=== PATIENT | male | born 1950 | race Caucasian/White ===

== ENCOUNTER → 2017-03-02 | Outpatient (CLI) | payer OTHER ==
[~2017-03-02] MED LIST: ATEN-173 PO; ATOR-24 PO; CMD10 PO; COEN50CA12 PO; CYAN100T PO; HYDR25TA4 PO; OMEG10007 PO; OPTIRAY 320 IV PRN; PYRI100T4 PO; TADA5TAB11 PO; THYROXINE PO; WARF7.5T4 PO
--- NOTE | 2017-03-02 12:25 | DIAGNOSTIC IMAGING REPORT ---
CHEST CT WITH CONTRAST CT DOSE: 335.56 mGy.cm HISTORY: Pulmonary nodules X TECHNIQUE: Multiaxial CT images of the chest were performed following the intravenous administration of contrast. COMPARISON: 02/01/2016 FINDINGS: No change in the minimal parenchymal nodularity described previously. All nodules previously described are stable. There is no evidence for new interval or progressive component of nodularity. There is no significant hilar or mediastinal adenopathy. IMPRESSION: Stable CT of the chest. Unchanging pulmonary micronodularity. Electronically signed by: Sanchez Resendez M.D. 03/02/2017 12:24 PM Dictated Date/Time: 03/02/2017 12:07 PM
== END | disposition home or self-care (01) ==
LOC: C.CTS 11:12
PROVIDERS: ATTEND Family Medicine
DX: R91.8 Other nonspecific abnormal finding of lung field (principal)

== ENCOUNTER 2024-07-14 08:27 | Inpatient (IN) ==
--- OUTSIDE RECORDS SUMMARY | 2024-07-14 08:33 | External Medical Summary | Summary of Care ---
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 W hen over exerting with rest for 5 minutes and able to continue. Denies chest pain, palpitations, SOB, dizziness and edema. Encounter Details Date Type Department Care Team (Latest Contact Info) Description 06/27/2024 11:00 AM EDT Office Visit Cardiology [address] [place] [id number] Sanchez Marr PA-C [address] [place] [id number] Permanent atrial fibrillation (HCC)*; HTN, goal below 140/90; Dyslipidemia, goal LDL below 70; Aortic atherosclerosis (HCC); History of tobacco abuse; Nonrheumatic aortic valve stenosis Allergies Active Allergy Reactions Criticality Noted Date Comments Amiodarone 05/23/2022 Other reaction(s): bradycardia, fatigue Citalopram 05/23/2022 Other reaction(s): Decreased libido Penicillin V Potassium Hives Low 03/27/2009 Prescribed after dental work documented as of this encounter (statuses as of 06/29/2024) Medications Medication Sig Dispensed Refills Start Date End Date Status CO Q 10 10 MG PO CAPS once daily 0 09/28/2007 Act sofi HYDROCHLOROTHIAZIDE 25 MG PO TABSIndications:Dysli pidemia, goal to be determined,Atrial fibrillation (HCC) take one tablet daily 90 Tab 11 04/01/2010 Active VITAMIN B-12 500 MCG PO TABS 1 daily Active VITAMIN B-6 100 MG PO TABS 1 daily Active ATENOLOL 25 MG PO TABSIndications:Dysli pidemia, goal to be determined,Atrial fibrillation (HCC) 1 by mouth daily 90 Tab 3 03/24/2011 Active LIPITOR 40 MG PO TABSIndications:Dysli pidemia, goal to be determined take one tablet daily 90 Tab 3 03/24/2011 Active SYNTHROID 75 MCG OR TABS one tablet daily Active tamsulosin (FLOMAX) 0.4 MG Capsule 05/27/2019 Active clotrimazole (LOTRIMIN) 1 % creamIndications:Eryt adan intertrigo Apply 2x daily under Desitin 40% cream (purple tube) until resolved, then if flares again 60 g 06/12/2019 Active Gentamicin Sulfate 0.1 % OINT Apply 2-3x daily to rash in groin first and then other cream on top until healed 30 g 1 06/17/2019 Active Gabapentin 300 MG Oral Capsule (Neurontin) Take 1 Capsule by mouth in the morning. 03/25/2022 Active Clobetasol Propionate 0.05 % External Ointment (Temovate) 02/16/2022 Activ e busPIRone HCl 30 MG Oral Tablet Start: 10/11/21 13:43:00 EST, See Instructions, Disp# 90 tab, Refills: 3, TAKE 1/2 TABLET BY MOUTH Twice DAILY, Pharmacy: [facility] 10/11/2021 Active Budesonide-Formoterol Fumarate 160-4.5 MCG/ACT Inhalation Aerosol 2 Puffs. 02/10/2022 Active Sildenafil Citrate 50 MG Oral Tablet Take 1 Tablet by mouth daily as needed for Erectile Dysfunction. Active Melatonin 10 MG Oral Tablet Take 0.5 Tablets by mouth at bedtime. Active NATURAL SUPPLEMENT Take by mouth daily. CBD 15 mg twice a day Active Eliquis 5 MG Oral Tablet Take 1 Tablet by mouth in the morning and 1 Tablet before bedtime. 01/02/2023 09/20/2024 Active Fexofenadine HCl 180 MG Oral Tablet (Jacque Allergy) Take 1 Tablet by mouth in the morning. Active Magnesium 200 MG Oral Tablet Take 1 Tablet by mouth in the morning. 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 1 11/08/2005 Overview: ICD-10 update of inactive term Anticoagulation management encounter 09/08/2006 Atrial fibrillation 08/11/2006 Benign localized hyperplasia of prostate with urinary obstruction and other lower urinary tract symptoms (LUTS)(600.21) Dyslipidemia, goal to be determined documented as of this encounter (statuses as of 06/29/2024) Social History Tobacco Use Types Packs/Day Years Used Date Smoking Tobacco: Former Smokeless Tobacco: Former Snuff Quit: 02/05/1990 Comments:quit smoking 07/27 Alcohol Use Standard Drinks/Week Comments Yes 0 (1 standard drink = 0.6 oz pur e alcohol) a beer now and then Sex and Gender Information Value Date Recorded Sex Assigned at Not on file Gender Identity Not on file Sexual Orientation Not on file Job Start Date Occupation Industry Not on file Not on file Not on file documented as of this encounter Last Filed Vital Signs Vital Sign Reading Time Taken Comments Blood Pressure 118/74 06/27/2024 11:06 AM EDT Pulse 72 06/27/2024 11:06 AM EDT Temperature - - Respiratory Rate 16 06/27/2024 11:0 6 AM EDT Oxygen Saturation - - Inhaled Oxygen Concentration - - Weight 76.2 kg (167 lb 14.4 oz) 024 11:06 AM EDT Height - - Body Mass Index - - documented in this encounter Progress Notes * Sanchez Marr PA-C - 06/27/2024 11:18 AM EDT History of Present Illness: Scout Contreras is a very pleasant 74 year old male here today for routine cardiology follow-up. Patient returns today feeling relatively well from a cardiac standpoint. Notes improvement in restless legs as well as neuropathy with addition of [id number] magnesium 200 mg/day. No activity related chest pain, dyspnea, or change in exercise tolerance. Stable shortness of breath when bending over to tie his shoes. No tachypalpitations. No orthopnea, PND or peripheral edema. No syncope. No epistaxis, hemoptysis, melena, or hematuria, rarely with bright red blood, ?hemorrhoidal bleeding. Problem List: Chronic atrial fibrillation. Chronic anticoagulation Hypertension Dyslipidemia Prediabetes Hyperhomocystinemia Hypothyroidism BPH with luts, followed by Dr. Brett Arias Reactive airway disease History of tobacco use Erectile dysfunction Lower extremity paresthesias, polyneuropathy, improved with gabapentin Allergic rhinitis Anxiety Depression Vasectomy Family History: Family history of ischemic heart disease with his mother having undergone CABG in her 60s Social History: Former smoker. Formal snuff user, quitting in 1989. Social alcohol. No illegal druguse. . Two children. Retired, [employer], 38 years of service. 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 Lives in [place], [place] Complete Review of Systems is as stated above, negative, or noncontributory. Review of patient's allergies indicates: Allergen Reactions Amiodarone Other reaction(s): bradycardia, fatigue Citalopram Other reaction(s): Decreased libido Pen Vk [Penicillin V Potassium] Hives Prescribed after dental work Current Outpatient Medications Medication Sig Dispense Refill Fexofenadine HCl 180 MG Oral Tablet (Jacque Allergy) Take 1 Tablet by mouth in the morning. Magnesium 200 MG Oral Tablet Take 1 Tablet by mouth in the morning. Eliquis 5 MG Oral Tablet Take 1 Tablet by mouth in the morning and 1 Tablet before bedtime. Melatonin 10 MG Oral Tablet Take 0.5 Tablets by mouth at bedtime. NATURAL SUPPLEMENT Take by mouth daily. CBD 15 mg twice a day Sildenafil Citrate 50 MG Oral Tablet Take 1 Tablet by mouth daily as needed for Erectile Dysfunction. busPIRone HCl 30 MG Oral Tablet Start: 10/11/21 13:43:00 EST, See Instructions, Disp# 90 tab, Refills: 3, TAKE 1/2 TABLET BY MOUTH Twice DAILY, Pharmacy: [facility] Clobetasol Propionate 0.05 % External Ointment (Temovate) Gabapentin 300 MG Oral Capsule (Neurontin) Take 1 Capsule by mouth in the morning. Gentamicin Sulfate 0.1 % OINT Apply 2-3x daily to rash in groin first and then other cream on top until healed 30 g 1 clotrimazole (LOTRIMIN) 1 % cream Apply 2x daily under Desitin 40% cream (purple tube) until resolved, then if flares again 60 g 0 tamsulosin (FLOMAX) 0.4 MG Capsule SYNTHROID 75 MCG OR TABS one tablet daily ATENOLOL 25 MG PO TABS 1 by mouth daily 90 Tab 3 LIPITOR 40 MG PO TABS take one tablet daily 90 Tab 3 HYDROCHLOROTHIAZIDE 25 MG PO TABS take one tablet daily 90 Tab 11 Budesonide-Formoterol Fumarate 160-4.5 MCG/ACT Inhalation Aerosol 2 Puffs. VITAMIN B-12 500 MCG PO TABS 1 daily VITAMIN B-6 100 MG PO TABS 1 daily CO Q 10 10 MG PO CAPS once daily 0 No current facility-administered medications for this visit. PHYSICAL EXAMINATION: BP 118/74 | Pulse 72 | Resp 16 | Wt 76.2 kg (167 lb 14.4 oz) General: alert, no distress, comfortable and cooperative Skin: no rashes or significant lesions Eyes: PER. Conjunctiva pink, sclera clear. HENT: Normocephalic. Atraumatic. Neck: No carotid bruits. No JVD. No HJR. Heart: Irregularly irregular at 74 bpm. Soft systolic murmur at the lower left sternal border. PMI is nondisplaced. Lungs: Clear. No abnormal breath sounds appreciated. Abdomen: +BS. Soft. Nontender. No masses. No organomegaly. Extremities: No clubbing, cyanosis, or edema. Warm, well perfused. Pulses: radial=2/4, posterior tibial=2/4 Limited neurological examination: No focal deficit. Data: April 29, 2019 Abdominal Arterial Study: Moderate atherosclerotic calcification and irregularity noted throughout the abdominal aorta with no sonographic evidence of abdominal aortic aneurysm. December 31, 2013 FELIX Interpretation Summary ([facility], Dr. Servin): The stress echocardiogram is negative for inducible ischemia. No comparison study available. Normal left ventricular systolic function.Ejection fraction 55 to 60%. The left ventricular ejection fraction increases normally with stress.Left ventricular end systolic cavity size reduces post-stress (normal were spots). The left ventricular wall motion with stress is normal. Left atrium was moderately dilated. The right atrium is mildly dilated. Mild aortic valve sclerosis, without significant aortic valve stenosis. Mild mitral regurgitation. November 03, 2022 TTE Interpretation Summary (as per Dr. Veronica): There was atrial fibrillation during the examination. The left ventricular wall motion is normal. The qualitative LV ejection fraction is 55-59% (normal). The left atrium is moderately enlarged (42-48 ml/m^2). The right atrium is mildly enlarged. The aortic valve is mildly calcified. Borderline to mild aortic stenosis is present. Mild tricuspid regurgitation is present. There is no evidence of pulmonary hypertension. October 2022 Zio Monitor: Atrial Fibrillation occurred continuously (100% burden), ranging from 47-183 bpm (avg of 78 bpm). Isolated VEs were rare (<1.0%), VE Couplets were rare (<1.0%), and noVE Triplets were present. EKG dated 11/21/2023: Atrial fibrillation with a ventricular rate of 66 bpm ASSESSMENT AND RECOMMENDATIONS/PLAN: Chronic atrial fibrillation. Patient asymptomatic. Three day Zio monitor in October 2022 revealed adequate rate control with an average heart rate of 78 bpm. Continue rate control with atenolol as presently prescribed. [id number] Score 3 points (age 65-74, hypertension history, aortic plaque). Continue Eliquis at 5mg twice a day. Eliquis dosing is notably reduced for nonvalvular atrial fibrillation if/when the patient has any two of the following: Age greater than or equal to 80, body weight less than or equalto 60 kg, serum creatinine greater than or equal to 1.5 mg/dL Mild aortic valve stenosis. Repeat resting echocardiography just prior to next evaluation. Hypertension. Blood pressure is well controlled. Continue the current antihypertensive regimen. Dyslipidemia. Recommend targeting an optimal LDL cholesterol goal of less than 70 mg/dL given the aortic plaque and prediabetes. Lipids followed by PCP. Prescribed atorvastatin 40 mg/day Exercise FLORENTINO in October 2023, waveform analysis and treadmill data with no evidence of significant peripheral arterial disease. Routine cardiology follow-up. ER with emergencies. Sanchez Marr PA-C Department of Cardiology I spent a total of 20-29 minutes (exact time 28 mins) on the date of service in preparation, delivery, and documentation of the care provided to Scout Contreras excluding any time spent in the performance of separately billed services. This visit involved medical care services related to at least one serious condition or complex condition requiring ongoing care. This chart was completed in part utilizing [employer] Speech Voice Recognition Software. Grammatical errors, random word insertions, prounoun errors, and incomplete sentences are an occasional consequence of this system due to software limitations, ambient noise, and hardware issues. Any formal questions or concerns about the content, text, or information contained within the body of this dictation should be directly addressed to the provider for clarification. documented in this encounter Nursing Notes * Morales Avalos LPN - 06/27/2024 11:05 AM EDT Patient identified by full name and date of Chief Complaint Patient presents with Follow Up 7 month follow up. When over exerting with rest for 5 minutes and able to continue. Denies chest pain, palpitations, SOB, dizziness and edema. Examination Room: 3 Name: Scout Contreras Date of : (1950). Reason for Visit: 7 month follow up Interim Hospitalization(s): Denies Problems/Concerns: See chief complaint Chest Pain/SOB: Denies [facility] Discussed: Not applicable [facility] is a way you can talk to your provider online through e-mail. Would you like to sign up? I can activate it for you? DECLINES Patient was instructed to not get up on the exam table until directed and assisted by their provider; patient is to remain seated in the chair/ wheelchair/ exam table for fall prevention and safety reasons. Patient is aware to have assistance to step down off exam table with personnel. Patient voiced full comprehension of instructions. documented in this encounter Plan of Treatment Upcoming Encounters Date Type Department Care Team (Late st Contact Info) Description 01/02/2025 10:30 AM EDT Cardiac Studies Cardiac Studies [address] [place] [id number] 02/11/2025 11:30 AM EDT Office Visit Cardiology [address] [place] [phone] Sanchez Marr PA-C [address] [place] [phone] 04/02/2025 11:00 AM EDT Office Visit Dermatology [address] [place] [address] Debbi Martin PA-C [address] [place] [address] [place] [id number] Scheduled Orders Name Type Priority Associated Diagnoses Orde r Schedule ECHO, COMPLETE (2D), TRANS-THORACIC Echocardiology Routine Nonrheumatic aortic valve stenosis Expected: 12/25/2024, Expires: 07/27/2026 Health Maintenance Due Date Last Done Comments GFR 1950 Depression Screening 1964 Albumin/Creatinine Ratio 01/25/1970 Hepatitis C Screening 01/25/1970 DTap/Tdap Vaccines (1 - Tdap) 01/25/1971 Cologuard 01/25/1997 Colonoscopy 01/25/1997 Colorectal Cancer Screening 01/25/1997 Fecal Occult Blood Test 01/25/1997 Sigmoidoscopy 01/25/1997 TSH 12/27/2008 12/28/2007, 08/07/2006 AAA Screening 01/25/2017 COVID-19 Vaccine (4 - 2023-2 4 season) 2024 07/11/2022, 12/31/2020, 11/22/2020 Influenza Vaccine (FLU shot) (#1) 2024 11/12/2019, 11/05/2018, 10/04/2017 Pneumococcal Vaccine: 65+ Years Completed 04/22/2019, 10/04/2017 Zoster Vaccines Completed 08/01/2019, 05/30/2019, 02/29/2012 HPV (Gardasil) Vaccine Aged Out No lo nger eligible based on patient's age to complete this topic Hepatitis B Vaccine Aged Out No longe r eligible based on patient's age to complete this topic MENINGOCOCCAL (MENACTRA/MENVEO) Aged Out No longer eligible b ased on patient's age to complete this topic documented as of this encounter Medical Devices Not on filedocumented as of this encounter Visit Diagnoses Diagnosis Permanent atrial fibrillation (HCC)- Primary Atrial fibrillation HTN, goal below 140/90 Unspecified essential hypertension Dyslipidemia, goal LDL below 70 Other and unspecified hyperlipidemia Aortic atherosclerosis (HCC) Atherosclerosis of aorta History of tobacco abuse Personal history of tobacco use, presenting hazards to health Nonrheumatic aortic valve stenosis Aortic valve disorders documented in this encounter Care Teams Steam Drier Tender Relationship Specialty Start Date End Date Nabil Yoon MD [address] [place] [address] PCP - General 08/07/06 documented as of this encounter"
--- OUTSIDE RECORDS SUMMARY | 2024-07-14 08:33 | External Medical Summary | Continuity of Care Document ---
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 Name Role Phone Nabil Yoon Primary Care Physician [phone] Encounter [facility] [id number] Date(s): 05/09/24 - 05/09/24 [facility] [address] [facility] [address] [place] [address] [phone] Encounter Diagnosis Hyperlipidemia(Discharge Diagnosis) - 05/09/24 Hypothyroidism(Discharge Diagnosis) - 05/09/24 Prediabetes(Discharge Diagnosis) - 05/09/24 Body mass index [BMI] 28.0-28.9, adult(Discharge Diagnosis) - 05/09/24 Polyneuropathy(Discharge Diagnosis) - 05/09/24 Elevated PSA(Discharge Diagnosis) - 05/09/24 ED (erectile dysfunction)(Discharge Diagnosis) - 05/09/24 Discharge Disposition: Home or Self Care Attending Physician: MD Yoon Michael P Allergies, Adverse Reactions, Alerts Substance Criticality Severity Reaction Reaction Severity Status amiodarone fatigue bradycardia Active citalopram Decreased libido Ac tive PCN (penicillin) hives Act sofi Assessment and Plan Extracted from: Title:Office Visit Note Author:MD Karrie, Alfredo Browne Date:05/09/24 1.Hyperlipidemia STATUS: [X= specifies status]Previous visit:On Atorvastin 40 mg -Chronic stable: X -Chronic progressive: -Acute NEW DX: DATA:Labs/Tests reviewed. A1C,TSH andBMPordered forthisvisitand notdone GOAL:Maintain/improve stability. PLAN:Continue current monitoring. . 2.Hypothyroidism STATUS: [X= specifies status]Previous visit:REDUCE THE LEVOTHYROXINE 75 mcg FURTHER BY SKIPPING WED and SUN both . Check TSH in 8 weeks--goal > 2.0 -Chronic stable: X -Chronic progressive: -Acute NEW DX: DATA:Labs/Tests reviewed.A1C,TSH andBMPordered frthisvisitand notdone GOAL:Maintain/improve stability. PLAN:Continue current monitoring. . 3.Prediabetes STATUS: [X= specifies status]Previous visit:A1C 5.4 -Chronic stable: X -Chronic progressive: -Acute NEW DX: DATA:Labs/Tests reviewed.A1C,TSH andBMPordered [facility]this[facility]anddoneat [facility] GOAL:Maintain/improve stability. PLAN:Continue current monitoring. . 4.Polyneuropathy STATUS: [X= specifies status]Previous visit: He has had a marked improvement with magnesium 200 mg daily -Chronic stable: X -Chronic progressive: -Acute NEW DX: DATA:Labs/Tests reviewed. GOAL:Maintain/improve stability. PLAN:Continue current monitoring. He wants to taper down on the Neurontin and will cut from 300 mg BID to HS only and cont the Mg 200 mg daily . 5.Elevated PSA STATUS: [X= specifies status]Previous visit: BN 2022 PSA = 13; Per pt most recently in JAN 2024 PSA = 7. BX was NEG in NOV 2022. -Chronic stable: X -Chronic progressive: -Acute NEW DX: DATA:Labs/Tests reviewed. GOAL:Maintain/improve stability. PLAN:Continue current monitoring. PSA Q 6 mos as per Urology rec ([facility]) . 6.ED (erectile dysfunction) STATUS: [X= specifies status]Previous visit: He has had to use Viagra 150 mg for a full erection. Disucssed this is too much and may not be safe, -Chronic stable: X -Chronic progressive: -Acute NEW DX: DATA:Labs/Tests reviewed. GOAL:Maintain/improve stability. PLAN:Continue current monitoring. Trial of Cialis 10mg daily prn Disp 40 REF 3 . Summary: Medications: reviewed/changed/refilled _Completed Results:_Reviewed Labs:_6 mos: FLP,BMP, TSH,A1C, PSA Follow up visit: Return to clinic: _6 months Other activities completed this visit: Education provided (discussion, questions, etc) _ Discussed: _ Need for labs to monitor health ; Efficacy and Side effects of CIalis Coordinate care: Primary care and _ Time spent: Pre-visit planning: _ 8 [id number] visit: _ 23 Total visit time: _ 31 *does not include time for AWV or procedure if applicable Immunizations Given and Recorded Vaccine Date Status Refusal Reason RSV Vaccine Unspecified 10/13/23 Recorded influenza virus vaccine, inactivated 10/20/22 Give n influenza virus vaccine, inactivated 10/11/21 Give n influenza virus vaccine, inactivated 08/24/20 Give n influenza virus vaccine, inactivated 11/12/19 Give n influenza virus vaccine, inactivated 11/05/18 Give n influenza virus vaccine, inactivated 10/04/17 Give n tetanus/diphtheria/pertuss, acel (Tdap) 10/12/21 R ecorded SARS-CoV-2 (COVID-19) mRNA-1273 vaccine 1 08/23/21 Recorded SARS-CoV-2 (COVID-19) ChAdOx1 vaccine 12/31/20 Rec orded SARS-CoV-2 (COVID-19) ChAdOx1 vaccine 11/22/20 Rec orded zoster vaccine, inactivated 08/01/19 Given zoster vaccine, inactivated 05/30/19 Given pneumococcal 23-valent vaccine 04/22/19 Given tetanus toxoids-diphtheria, Td (Adult) 10/04/17 [facility] pneumococcal 13-valent vaccine 10/04/17 Given zoster vaccine live 02/29/12 Given 1Result Comment: 2021-10-14: Historical information-source unspecified Medications Jacque Start: 05/09/24 11:24:00 AM EDT Start Date: 05/09/24 Status: Ordered atenolol 25 mg oral tablet Start: 10/26/23 11:53:00 AM EST, See Instructions, Disp# 90 tab, Refills: 3, TAKE 1 TABLET BY MOUTH DAILY, Pharmacy: [facility]/pharmacy #[id number] Start Date: 10/26/23 Status: Ordered atorvastatin 40 mg oral tablet Start: 10/26/23 11:54:00 AM EST, See Instructions, Disp# 90 tab, Refills: 3, TAKE 1 TABLET BY MOUTH DAILY, Pharmacy: [facility]/pharmacy #[id number] Start Date: 10/26/23 Status: Ordered busPIRone 30 mg oral tablet Start: 10/26/23 11:54:00 AM EST, See Instructions, Disp# 90 tab, Refills: 3, TAKE 1/2 TABLET BY MOUTHTwice DAILY, Pharmacy: [facility]/pharmacy #[id number] Start Date: 10/26/23 Status: Ordered cannabidiol Start: 10/20/22 10:54:00 AM EST, 30 mg =, PO, Daily, Uses OTC CBD form [employer] Start Date: 10/20/22 Status: Ordered Cialis 20 mg oral tablet Start: 05/09/24 12:06:00 PM EDT, 1 tab, PO, Daily, Disp# 40 tab, Refills: 3, Note to Pharmacy: He isoff Sildenafil, PRN: as needed for erectile dysfunction Start Date: 05/09/24 Status: Ordered Eliquis 5 mg oral tablet Start: 10/26/23 11:55:00 AM EST, 1 tab, PO, bid, Disp# 60 tab, Refills: 10, Note to Pharmacy: stop Warfarin, Pharmacy: [facility]/pharmacy #[id number] Start Date: 10/26/23 Stop Date: 09/20/24 Status: Ordered gabapentin 300 mg oral capsule Start: 10/26/23 11:54:00 AM EST, See Instructions, Disp# 270 cap, Refills: 3, TAKE 1 CAPSULE BY MOUTH3 TIMES DAILY, Pharmacy: [facility]/pharmacy #[id number] Start Date: 10/26/23 Status: Ordered hydroCHLOROthiazide 25 mg oral tablet Start: 10/26/23 11:54:00 AM EST, See Instructions, Disp# 90 tab, Refills: 3, TAKE 1 TABLET BY MOUTH DAILY, Pharmacy: [facility]/pharmacy #[id number] Start Date: 10/26/23 Status: Ordered ipratropium 42 mcg/inh (0.06%) nasal spray Start: 12/20/23 6:03:00 PM EST, 2 spray, intranasal, qid, Disp# 15 unknown unit, Refills: 0, PRN: ASNEEDED FOR COLD SYMPTOMS, Pharmacy: [facility] STORE [id number] Start Date: 12/20/23 Status: Ordered levothyroxine 75 mcg (0.075 mg) oral tablet Start: 10/26/23 11:54:00 AM EST, See Instructions, Disp# 90 tab, Refills: 3, 1 tab PO Daily M-SAT. SKIP SUN on an empty stomach, Pharmacy: [facility]/pharmacy #[id number] Start Date: 10/26/23 Status: Ordered magnesium oxide 400 mg oral capsule Start: 05/09/24 11:23:00 AM EDT Start Date: 05/09/24 Status: Ordered Melatonin Start: 05/09/24 11:22:00 AM EDT, 10 mg =, PRN Start Date: 05/09/24 Status: Ordered multivitamin Start: 05/09/24 11:23:00 AM EDT, 1 tab, PO, Daily Start Date: 05/09/24 Status: Ordered ProAir HFA 90 mcg/inh inhalation aerosol Start: 05/09/24 5:19:00 PM EDT, 2 puff, inhaled, qid, Disp# 1 each, Refills: 3, PRN: as needed for wheezing, Pharmacy: [facility]/pharmacy #[id number] Start Date: 05/09/24 Stop Date: 05/04/25 Status: Ordered sildenafil 100 mg oral tablet Start: 10/26/23 12:23:00 PM EST, 1 tab, PO, Daily, Disp# 18 tab, Refills: 3, PRN: as needed for erectile dysfunction Start Date: 10/26/23 Stop Date: 02/23/24 Status: Ordered Symbicort 160 mcg-4.5 mcg/inh inhalation aerosol Start: 05/09/24 5:19:00 PM EDT, 2 puff, inhaled, bid, Disp# 1 each, Refills: 3, Pharmacy: [facility]/pharmacy #[id number] Start Date: 05/09/24 Status: Ordered tamsulosin 0.4 mg oral capsule Start: 10/26/23 11:54:00 AM EST, 1 cap, PO, Daily, Disp# 90 cap, Refills: 3, Pharmacy: [facility]/pharmacy #[id number] Start Date: 10/26/23 Stop Date: 10/20/24 Status: Ordered triamcinolone 0.1% topical cream Start: 05/09/24 5:19:00 PM EDT, 1 appl, topical, bid, Disp# 30 g, Refills: 3, apply to foot, Pharmacy: [facility]/pharmacy #[id number] Start Date: 05/09/24 Status: Ordered Mental Status 05/09/24 Barriers to Learning one year None evide nt Mandatory Health Literacy Documentation Yes Health Literacy Communication Barriers N ever Primary Language Chinese Problem List Condition Confirmation Course Effective Dates Status Health Status Informant ALLERGIC RHINITIS Confirmed Active ANXIETY Confirmed Active ATRIAL FIBRILLATION Confirmed Active BPH with elevated PSA Confirmed Active Edema leg Confirmed Active ED (erectile dysfunction) Confirmed Active Hyperhomocysteinemia Confirmed Active Hyperlipidemia Confirmed Active Hypothyroidism Confirmed Active Obese Confirmed Active Left leg paresthesias Confirmed Active Right leg paresthesias Confirmed Active Health care maintenance Confirmed Active Polyneuropathy Confirmed Active Prediabetes Confirmed Active Reactive airway disease Confirmed Active History of prior cigarette smoking Confirmed Active Diagnosis Diagnosis Type Effective Dates Health Status Clinical Service Informant Prediabetes Discharge Diagnosis 05/09/24 Non-Specified Hypothyroidism Discharge Diagnosis 05/09/24 Non-Specified Hyperlipidemia Discharge Diagnosis 05/09/24 Non-Specified Elevated PSA Discharge Diagnosis 05/09/24 Non-Specified Body mass index [BMI] 28.0-28.9, adult Discharge Diagnosis 05/09/24 Non-Specified ED (erectile dysfunction) Discharge Diagnosis 05/09/24 Non-Specified Polyneuropathy Discharge Diagnosis 05/09/24 Non-Specified Procedures Procedure Date Related Diagnosis Body Site Status Eye examination 12/02/22 Completed Chest x-ray 1 10/29/19 Completed Ultrasound scan of abdominal aorta 2 04/29/[address] 3 03/02/17 Completed Hand X-ray 4 02/16/16 Completed Hand X-ray 5 02/16/[address] of chest 6 02/01/16 Completed Chest x-ray 7 12/27/[address] head w/o contrast 8 12/27/15 Co mpleted Colonoscopy 9 02/09/[address] 10 02/02/15 Completed Cardiac stress test stage 12/21/13 Completed EKG 12/21/12 Completed prostate biopsy - neg for CA 02/20/09 Completed EMG 01/09/09 Completed EKG 12/13/07 Completed prostate biopsy - neg for CA 09/22/06 Completed echo 07/28/06 Completed colonoscopy 10/23/04 Completed vasectomy 10/23/99 Completed T & A 10/23/56 Completed Nerve conduction study 11 Completed 1No acute cardiopulmonary disease. 2impression There is no sonographic evidence of abdominal aneurysm 3Stable CT of the chest. Unchanging pulmonary micronodularity 4left-arthritic changes with no acute bony abnormality 5right - right hand osteoarthritis. Neg for fx 6No significant changae compared to previous study. A few stable subcentimeter pulmonary nodule which are likely benign. No new pulmonary nodules identified 7no acute process 8ER-no acute intracranial abnormality 9ileum normal, internal hemorrhoids, enlarged prostate - repeat 10 years 104 mm RLL nodule--follow with repeat CT in 1 year per radiology. 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 1, 2 Smoking Status Former Smoker, quit > 1 yr Sex Male 1Duration x 30 yrs 2HX Smoking 1 ppd x FCM Outpt Note * MD Karrie, Nabil P: PERFORM Event Display: FCM Outpt Note Authored Date: Chief Complaint 6 month f/u. Started magnesium which seems to help with restless legs. History of Present Illness Most recent visitwith Dr. Yoon: 11/12/23 * This patient is followed longitudinally for chronic serious medical problems by Dr. Felicita Yoon. CC: FU on established problems (status = chronic):MDD, BPH, AFIB, Hyperlipidemia, PreDM Address new problems (status = acute): Had RLS and he tried Magnesium and this has helped. He is taking 200 mg daily Review of Systems Constitutional: No fever, No chills, No fatigue. Respiratory: No shortness of breath, No cough, No wheezing. Cardiovascular: No chest pain, No palpitations. Gastrointestinal: No nausea, No vomiting, No diarrhea, No abdominal pain. Neurologic:No numbness, No tingling, No headache. Physical Exam Vitals & Measurements HR:57(Monitored) RR:18 BP:122/86 SpO2:99% HT:162cm WT:75.800kg(Dosing) WT:75.8kg BMI:28.88 PHQ2 Data(Data Documented on:05/09/2024 11:25) Emotional health assessment NEGATIVE General: Alert and oriented, No acute distress. HEENT: Eyes WNL, Tympanic membranes are clear, No pharyngeal erythema, No sinus tenderness. Neck: Supple, Non-tender, No jugular venous distention, No lymphadenopathy, No thyromegaly. Respiratory: Lungs are clear to auscultation, Respirations are non-labored, Breath sounds are equal. Cardiovascular: Normal rate, Regular rhythm, No murmur, rubs or gallops. Gastrointestinal: Soft, Non-tender, Non-distended, Normal bowel sounds. Neurologic: Alert, Oriented, No focal deficits. Psychiatric: Cooperative, Appropriate mood & affect. Assessment/Plan 1.Hyperlipidemia STATUS: [X= specifies status]Previous visit:On Atorvastin 40 mg -Chronic stable: X -Chronic progressive: -Acute NEW DX: DATA:Labs/Tests reviewed.A1C,TSH andBMPordered forthisvisitand notdone GOAL:Maintain/improve stability. PLAN:Continue current monitoring. . 2.Hypothyroidism STATUS: [X= specifies status]Previous visit:REDUCE THE LEVOTHYROXINE 75 mcg FURTHER BY SKIPPING WED and SUN both . Check TSH in 8 weeks--goal > 2.0 -Chronic stable: X -Chronic progressive: -Acute NEW DX: DATA:Labs/Tests reviewed.A1C,TSH andBMPordered frthisvisitand notdone GOAL:Maintain/improve stability. PLAN:Continue current monitoring. . 3.Prediabetes STATUS: [X= specifies status]Previous visit:A1C 5.4 -Chronic stable: X -Chronic progressive: -Acute NEW DX: DATA:Labs/Tests reviewed.A1C,TSH andBMPordered frthisvisitanddoneat [facility] pending GOAL:Maintain/improve stability. PLAN:Continue current monitoring. . 4.Polyneuropathy STATUS: [X= specifies status]Previous visit: He has had a marked improvement with magnesium 200mg daily -Chronic stable: X -Chronic progressive: -Acute NEW DX: DATA:Labs/Tests reviewed. GOAL:Maintain/improve stability. PLAN:Continue current monitoring. He wants to taper down on the Neurontin and will cut from 300 mg BID to HS only and cont the Mg 200 mg daily . 5.Elevated PSA STATUS: [X= specifies status]Previous visit: [facility] 2022 PSA = 13; Per pt most recently in JAN 2024 PSA = 7. BX was NEG in NOV 2022. -Chronic stable: X -Chronic progressive: -Acute NEW DX: DATA:Labs/Tests reviewed. GOAL:Maintain/improve stability. PLAN:Continue current monitoring. PSA Q 6 mos as per Urology rec ([facility]) . 6.ED (erectile dysfunction) STATUS: [X= specifies status]Previous visit: He has had to use Viagra 150 mg for a full erection. Disucssed this is too much and may not be safe, -Chronic stable: X -Chronic progressive: -Acute NEW DX: DATA:Labs/Tests reviewed. GOAL:Maintain/improve stability. PLAN:Continue current monitoring. Trial of Cialis 10mg daily prn Disp 40 REF 3 . Summary: Medications: reviewed/changed/refilled _Completed Results:_Reviewed Labs:_6 mos: FLP,BMP, TSH,A1C, PSA Follow up visit: Return to clinic: _6 months Other activities completed this visit: Education provided (discussion, questions, etc) _ Discussed: _ Need for labs to monitor health ; Efficacy and Side effects of CIalis Coordinate care: Primary care and _ Time spent: Pre-visit planning: _ 8 [id number]-fp-[id number] visit: _ 23 Total visit time: _ 31 *does not include time for AWV or procedure if applicable Problem List/Past Medical History Ongoing ALLERGIC RHINITIS ANXIETY ATRIAL FIBRILLATION BPH with elevated PSA ED (erectile dysfunction) Edema leg Health care maintenance History of prior cigarette smoking Hyperhomocysteinemia Hyperlipidemia Hypothyroidism Left leg paresthesias Obese Polyneuropathy Prediabetes Reactive airway disease Right leg paresthesias Resolved Immunization due Leg pain Peripheral arterial disease Procedure/Surgical History Eye examination| Service Date: 3Chest x-ray| Service Date: 10/29/2019Ultrasound scan of abdominal aorta| Service Date: 04/29/2019Chest CT| Service Date: 03/02/2017Hand X-ray| Service Date: 02/16/2016Hand X-ray| Service Date: 02/16/2016CT of chest| Service Date: 02/01/2016Chest x-ray| Service Date: 12/27/2015CT head w/o contrast| Service Date: 12/27/2015Colonoscopy| Service Date: 02/09/2015Chest CT| Service Date: 02/02/2015Cardiac stress test stage| Service Date: 12/21/2013EKG| Service Date: 12/21/2012prostate biopsy - neg for CA| Service Date: 02/20/2009EMG| Service Date: 01/09/2009EKG| Service Date: 12/13/2007prostate biopsy - negfor CA| Service Date: 09/22/2006echo| Service Date: 07/28/2006colonoscopy| Service Date: 10/23/2004 vasectomy| Service Date: 10/23/1999 T & A| Service Date: 10/23/1956 Nerve conduction study Medications albuterol(ProAir HFA 90 mcg/inh inhalation aerosol), 2 puff, inhaled, qid, PRN, 3 refills apixaban(Eliquis 5 mg oral tablet), 5 mg= 1 tab, PO, bid, 10 refills atenolol(atenolol 25 mg oral tablet), See Instructions, 3 refills atorvastatin(atorvastatin 40 mg oral tablet), See Instructions, 3 refills budesonide-formoterol(Symbicort 160 mcg-4.5 mcg/inh inhalation aerosol), 2 puff, inhaled, bid, 3 refills busPIRone(busPIRone 30 mg oral tablet), See Instructions, 3 refills cannabidiol, 30 mg, PO, Daily fexofenadine(Jacque) gabapentin(gabapentin 300 mg oral capsule), See Instructions, 3 refills hydroCHLOROthiazide(hydroCHLOROthiazide 25 mg oral tablet), See Instructions, 3 refills ipratropium nasal(ipratropium 42 mcg/inh (0.06%) nasal spray), 2 spray, intranasal, qid, PRN levothyroxine(levothyroxine 75 mcg (0.075 mg) oral tablet), See Instructions, 3 refills magnesium oxide(magnesium oxide 400 mg oral capsule) melatonin(Melatonin), 10 mg multivitamin, 1 tab, PO, Daily sildenafil(sildenafil 100 mg oral tablet), 100 mg= 1 tab, PO, Daily, PRN, 3 refills tamsulosin(tamsulosin 0.4 mg oral capsule), 0.4 mg= 1 cap, PO, Daily, 3 refills triamcinolone topical(triamcinolone 0.1% topical cream), 1 appl, topical, bid, 3 refills Allergies PCN (penicillin)hives amiodaronefatigue, bradycardia citalopramDecreased libido Social History Smoking Status Former Smoker, quit > 1 yr Alcohol Use:Current Type:Beer Frequency:1-2 times per week - Comments: Less in winter 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 Work hazards:Heavy lifting/twisting, Loud noises, Repetitive motion, Shift/Night work Exercise - Occasional exercise Home/Environment Lives with:Spouse Substance Abuse - Denies Substance Abuse Tobacco - Denies Tobacco Use Use:Former smoker Type:Cigarettes Number of years:30 - Comments: Duration x 30 yrs HX Smoking 1 ppd x Family History Alive and well: Sister, Daughter and Daughter. Cardiovascular disease: Mother. Diabetes: Mother. Heart disease: Mother. High Blood Pressure: Father. Melanoma: Sister. Health Status Family Member(s) Family Member(s) Relationship: Mother, Name: , Age: 86 Years, Cause: PVD Relationship: Father, Name: deceassed, Age: 85 Years, Cause: old age Immunizations Vaccine Date Status RSV Vaccine Unspecified 10/13/2023 Recorded influenza virus vaccine, inactivated 10/20/2022 Given tetanus/diphtheria/pertuss, acel (Tdap) 10/12/2021 Recorded influenza virus vaccine, inactivated 10/11/2021 Given SARS-CoV-2 (COVID-19) mRNA-1273 vaccine 08/23/2021 Recorded Comments : 2021-10-14: Historical information-source unspecified SARS-CoV-2 (COVID-19) ChAdOx1 vaccine 12/31/2020 Recorded SARS-CoV-2 (COVID-19) ChAdOx1 vaccine 11/22/2020 Recorded influenza virus vaccine, inactivated 08/24/2020 Given influenza virus vaccine, inactivated 11/12/2019 Given zoster vaccine, inactivated 08/01/2019 Given zoster vaccine, inactivated 05/30/2019 Given pneumococcal 23-valent vaccine 04/22/2019 Given influenza virus vaccine, inactivated 11/05/2018 Given tetanus toxoids-diphtheria, Td (Adult) 10/04/2017 Given pneumococcal 13-valent vaccine 10/04/2017 Given influenza virus vaccine, inactivated 10/04/2017 Given zoster vaccine live 02/29/2012 Given Recommendations Health Maintenance Pending(in the next year) OverDue Medicare Annual Wellness Visit due04/18/23and every 1year Due Adult Influenza Vaccine due04/21/24and every 1year Adult COVID-19 Vaccination due05/09/24Unknown Frequency Adult Social Determinants of Health Screening due05/09/24Unknown Frequency Due In Future Colorectal Cancer Screening not due until02/06/25and every 10year Satisfied(in the past 1 year) Satisfied Body Mass Index on05/09/24.Satisfied by GRACIELA Peacock Vanessa T Lipid Screening on10/12/23.Satisfied by Contributor_system, [employer] Electronic Signature on File Electronically Reviewed/Signed by: Nabil Yoon MD Author Signature Dt/Tm:05/09/2024 12:04 PM Department of Family Medicine [facility] Patient Care team information Care Team Personnel Name: MD Karrie, Nabil Browne Position: Physician - Family Med Member Role: Primary Care Provider Address: Address: [address] [place] [address] [place] Name: BRITT Camacho Lynn 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
--- NOTE | 2024-07-14 08:49 | Emergency Department Note ---
Impression & Plan Gastroenteritis, Upper GI bleed ED Provider Note Name: MYRA PETTIT Age: 74 Sex: Male Arrives Via: Walk-In Informant: Patient ED Provider: Reynold Frederick MD Chief Complaint: Abdominal pain Impression: as per impressions above Medical Decision Makin-year-old gentleman with a history of A-fib, dyslipidemia, hypertension, BPH, hypothyroidism who is on Eliquis. Rapidly worsening last 24 hours associated nausea vomiting. He does have brown coffee-ground emesis. Distended abdomen uncomfortable. CT does show a pretty distended stomach and small bowel without any evidence of a transition point. Ileus versus partial small bowel obstruction in differential. With vomiting coffee-ground this is consistent with an upper GI bleed. Fortunately hemoglobin is unremarkable. He is on Eliquis thus IV Protonix was given. Patient is not septic and given findings I do not feel that general surgery evaluation emergently is necessary quite at this time. Patient is feeling much better after some nausea meds. Will keep n.p.o. and bring in for further management. Triage/Nursing Notes reviewed by Me Differential:Bowel obstruction, upper GI bleed, aortic pathology, pancreatitis, cholecystitis, ischemia, biliary pathology, perforation, many other pathologies considered Vital Signs: reviewed and remarkable for no significant abnormalities Interventions: nss bolus 1 L IV, Protonix 80 mg IV, Dilaudid 0.5 mg IV, Zofran 4 mg IV Labs:ED labs Reviewed by me and remarkable for no significant abnormalities Imaging:CT abdomen pelvis with IV contrast reveals large distended stomach with diffuse small bowel swelling though no transition point. This is as per my informal interpretation and then confirmed by radiologist. No evidence of free air or free fluid EKG:As per my interpretation. Indication epigastric pain. Atrial fibrillation at 93 bpm with a QTc of 477. There is no ischemia appreciated. Compared to EKG of December 20, 2022 there is no significant change. Cardiac/Tele Monitoring: Cardiac Monitoring: An Order was placed for continuous cardiac monitoring. The monitor shows a rate of 90 with afib rhythm. Consults:Discussed with Dr. Ricketts of the [facility] who will further evaluate for management Plan: Disposition:Hospitalization. Condition: Good History of Present Illness: 74-year-old gentleman arrives for evaluation of acute abdominal pain. Patient notes little under 24 hours of severe abdominal pain. It has actually improved a bit over the morning. Associated with repetitive vomiting since late yesterday evening. Notes coffee-ground brown emesis and increasingly dark stool. Did try taking some Pepto-Bismol without improvement. States pain is currently mild though does come in waves. Denies any fevers, chills, chest pain, shortness of breath, syncope, leg swelling, rashes, other bleeding bruising or other concerning signs or symptoms. No falls, trauma, injuries. Patient denies anyone else being sick. Patient admits 1 beer yesterday. He does eat a lot of hot peppers on a daily basis. Does not take any antacids. Has a history of a stomach ulcer many years ago. Patient is on Eliquis for history of A-fib. Past Medical History: A-fib, dyslipidemia, hypertension, BPH, hypothyroidism Home Medications: Patient is not on warfarin. He is currently on Eliquis for his A-fib. Also is on levothyroxine, hydrochlorothiazide, gabapentin, buspirone, atorvastatin, atenolol, sildenafil, tamsulosin Allergies: Penicillin, pollen Vitals:Blood Pressure: 158/83, Pulse 94, RR 14, T 36.4C, O2 100% on RA Physical Exam: GENERAL: Patient is tired appearing and in minimal distress. RESPIRATORY: No dyspnea. Clear to auscultation and equal bilaterally. CARDIOVASCULAR: Regular rate and rhythm.No murmur appreciated. GASTROINTESTINAL: Mild epigastric tenderness palpation EXTREMITIES: Normal motion all extremities, no cyanosis, no edema. NEUROLOGIC: Alert and oriented. No focal neurologic deficits appreciated SKIN: No rash, no jaundice, no diaphoresis. PSYCH: Appropriate GCS: 15 ED Course: Times/Reassessments: Patient stable throughout comfortable after meds and agreeable to hospitalization Reynold Frederick MD Past Med/Surg History Problem List (Updated 07/14/24 @ 16:08 by Reynold Frederick MD) Constipation Gastroenteritis (Acute) Upper GI bleed (Acute) Partial bowel obstruction BPH with obstruction/lower urinary tract symptoms Cubital tunnel syndrome on right Hypothyroidism (Chronic) Hypertension (Chronic) Bilateral leg weakness (Acute) Nocturia (Acute) Elevated PSA (Acute) Bronchitis No history of previous surgery Carpal tunnel syndrome on both sides Medical History (Updated 07/14/24 @ 16:08 by Reynold Frederick MD) Anxiety Leg weakness HX / EVAL FOR / NO FINDINGS/REASON FOR GABAPENTIN...EFFECTIVE Hypothyroid History of high cholesterol Borderline high blood pressure Cubital tunnel syndrome, bilateral Atrial fibrillation DX 2003 OR 2004 NO HX CARDIOVERSION ON WARFARIN Surgical History History of tonsillectomy History of colonoscopy Family History Grandmother (Maternal) Diabetes Mother Diabetes Other Hypertension Social History Smoking Status: Former smoker Do You Dip or Chew Tobacco: No; Hx Substance Use: No Preferred Language: Chadian Communication Ability: Effective Well Testing Operator Required: No Beliefs That Will Affect Care: None Current Living Situation: Spouse Feels Safe at Home: Yes Assistive Devices: Hearing Aid - Bilateral Allergies Allergies Allergy/AdvReac Type Severity Reaction Status Date / Time penicillin V [From Pen-Vee K] Allergy Unknown Rash Verified 07/14/24 11:30 pollen extracts Allergy Unknown RUNNY Verified 07/14/24 11:30 NOSE, SNEEZING, ITCHY EYES Home Meds Home Medications Medication Instructions Recorded Confirmed atenolol 25 mg tablet 25 mg PO PM 07/16/19 07/14/24 atorvastatin 40 mg tablet 40 mg PO QPM 07/16/19 07/14/24 hydrochlorothiazide 25 mg tablet 25 mg PO QAM 07/16/19 07/14/24 levothyroxine 75 mcg tablet 75 mcg PO DAILYBB 07/16/19 07/14/24 acetaminophen 500 mg tablet 1,000 mg PO Q6H PRN Pain 04/24/21 07/14/24 (Tylenol Extra Strength) gabapentin 300 mg capsule 300 mg PO QPM 04/24/21 07/14/24 Cbd Capsule 1 dose PO DAILY 12/28/22 07/14/24 apixaban 5 mg tablet (Eliquis) 5 mg PO BID 07/14/24 07/14/24 buspirone 30 mg tablet 15 mg PO QAM 07/14/24 07/14/24 magnesium 250 mg tablet 250 mg PO QPM 07/14/24 07/14/24 melatonin 5 mg tablet 5 mg PO HS PRN Sleep 07/14/24 07/14/24 multivitamin 1 tab PO QAM 07/14/24 07/14/24 tamsulosin 0.4 mg capsule 0.4 mg PO QPM 07/14/24 07/14/24 Previous Rx's Medication Instructions Recorded tramadol 50 mg tablet 50 - 100 mg (1 - 2 x 50 mg) PO Q6H 01/04/23 PRN pain #20 tabs Results & Data (ED) Vital Signs Vital Signs - 24 hr 07/14/24 08:27 07/14/24 09:58 Temperature 36.4 C L Temperature Source Oral Pulse Rate 91 H 89 Pulse Rhythm Irregular Pulse Strength Normal Respiratory Rate 20 Blood Pressure 139/93 Blood Pressure Mean 108 Pulse Oximetry 93 Oxygen Delivery Method Room Air Sepsis Recent Fever Within 48 Hours No Sepsis New/Unexplained Change in Mental Status No Sepsis Action Taken by Nursing No Action Required Laboratory Data 07/14/24 09:09 07/14/24 09:56 Lab Results 07/14/24 07/14/24 Range/Units 09:09 09:56 WBC 6.20 (4.8-10.8) K/ul RBC 4.97 (4.70-6.10) M/uL Hgb 15.5 (14.0-18.0) g/dl Hct 44.7 (42.0-52.0) % MCV 89.9 (80.0-100.0) fL MCH 31.2 (25.0-34.0) pg MCHC 34.7 (32.0-36.0) g/dL RDW Std Deviation 41.4 (36.4-46.3) fL RDW Coeff of Hanna 12.7 (11.5-14.5) % Plt Count 200 (130-400) K/uL MPV 10.2 (9.4-12.4) fL Immature Gran % (Auto) 0.2 % Neut % (Auto) 74.7 % Lymph % (Auto) 14.2 % Edmunds % (Auto) 9.8 % Eos % (Auto) 0.5 % Baso % (Auto) 0.6 % Neut # (Auto) 4.63 (1.40-6.50) K/uL Lymph # (Auto) 0.88 L (1.20-3.40) K/uL Edmunds # (Auto) 0.61 H (0.11-0.59) K/uL Eos # (Auto) 0.03 (0.00-0.50) K/uL Baso # (Auto) 0.04 (0.00-0.20) K/uL Immature Gran # (Auto) 0.01 (0.01-0.20) K/uL PT 10.4 (9.0-12.0) Seconds INR 1.0 (0.9-1.1) APTT 26 (21-31) Seconds PTT Ratio 1.0 Sodium 140 (136-145) mmol/L Potassium TNP 3.3 L Chloride 99 (98-107) mmol/L Carbon Dioxide 33 H (21-32) mmol/L Anion Gap 8 (3-11) BUN 15 (6-23) mg/dl Creatinine 0.90 (0.6-1.4) mg/dl Est Cr Clr Drug Dosing 64.5 ml/min Est GFR ( Amer) 98.5 ml/min Est GFR (Non-Af Amer) 85.0 ml/min BUN/Creatinine Ratio 16.7 (10-20) Glucose 136 H (70-99(Fasting)) mg/dl Calcium 9.9 (8.6-10.3) mg/dl Magnesium 1.9 (1.7-2.4) mg/dl Total Bilirubin 0.9 (0.2-1.0) mg/dl Direct Bilirubin TNP 0.2 AST TNP 18 ALT 18 (7-52) U/L Alkaline Phosphatase 66 (34-104) U/L Troponin I High Sens 6.0 (0-20) pg/ml Total Protein 7.0 (6.0-8.3) gm/dl Albumin 4.4 (3.4-5.0) gm/dl Lipase 30 (11-82) U/L Administered Medications Lactated Ringer's (Lr) 1,000 mls @ 125 mls/hr IV .Q8H JAMIA Stop: 08/13/24 14:36 Last Admin: 07/14/24 15:13 Dose: 125 mls/hr Documented By: EUNICE Discontinued Medications Hydromorphone HCl (Hydromorphone Inj 0.5 Mg/0.5 Ml Syr) 0.5 mg IV NOW STA Stop: 07/14/24 11:16 Last Admin: 07/14/24 12:10 Dose: 0.5 mg Documented By: EUNICE Sodium Chloride (Nss) 1,000 mls @ 999 mls/hr IV .Q1H1M ONE Stop: 07/14/24 09:45 Last Infusion: 07/14/24 11:04 Dose: Infused Documented By: Admin: 07/14/24 09:04 Dose: 999 mls/hr Documented By: EUNICE Pantoprazole Sodium 80 mg/ (Dextrose) 120 mls @ 480 mls/hr IV ONE STA Stop: 07/14/24 08:59 Last Infusion: 07/14/24 11:03 Dose: Infused Documented By: Admin: 07/14/24 10:15 Dose: 480 mls/hr Documented By: BUNNY Acetaminophen (Ofirmev) 1,000 mg in 100 mls @ 400 mls/hr IV NOW STA Stop: 07/14/24 12:16 Last Infusion: 07/14/24 13:22 Dose: Infused Documented By: Admin: 07/14/24 13:04 Dose: 400 mls/hr Documented By: EUNICE Ioversol (Optiray 320 100ml) 94 ml IV ONCE ONE Stop: 07/14/24 10:28 Last Admin: 07/14/24 10:28 Dose: 94 ml Documented By: KRISTINA Ondansetron HCl (Ondansetron Inj 2 Mg/Ml 2 Ml Vial) 4 mg IV NOW STA Stop: 07/14/24 08:46 Last Admin: 07/14/24 09:04 Dose: 4 mg Documented By: EUNICE Imaging Data Radiologist's Impression: Abdomen/Pelvis CT 07/14/24 08:45 CT OF THE ABDOMEN AND PELVIS WITH CONTRAST CLINICAL HISTORY: Acute epigastric pain, coffee ground emesis. COMPARISON STUDY: Abdominal aortic ultrasound April 29, 2019. Prostate MRI December 13, 2022. TECHNIQUE: Following IV administration of 94 mL of Optiray, axial images of the abdomen and pelvis were obtained from the lung bases to the proximal femurs. Images were reviewed in the axial, sagittal, and coronal planes. IV contrast was administered without complication. Automated exposure control was utilized for the study. A dose lowering technique was utilized adhering to the principles of ALARA. CT DOSE: 1063.15 mGy.cm FINDINGS: Lung bases are unremarkable. There is mild circumferential wall thickening of the distal esophagus. No pneumatosis, free air or portal venous gas is present. The stomach is mildly distended and fluid-filled. Multiple small bowel loops are also mildly dilated and fluid-filled. There is increased stool within the small bowel. A well-defined transition point is not identified. There is minimal mesenteric stranding. The liver, spleen, adrenal glands and pancreas are unremarkable. There is no biliary or pancreatic ductal dilatation. There is extensive atherosclerotic plaque within the abdominal aorta. Attenuation bilateral renal lesions represent cysts. There is no hydronephrosis. There is no lymphadenopathy. There are no fluid collections. The prostate is enlarged, measuring 5.7 cm in transverse diameter. There are small fat-containing bilateral inguinal hernias. IMPRESSION: 1. Mild circumferential wall thickening of the distal esophagus. This favors esophagitis. 2. Fluid-filled mildly distended stomach. Multiple distended fluid-filled small bowel loops. The findings may reflect a gastroenteritis. Although no well- defined transition point, a partial small bowel obstruction could appear similar. Radiographic follow-up is recommended. 3. Multiple renal cysts. 4. Enlarged prostate. No hydronephrosis. ACT 112: Negative or not required by law. Electronically signed by: Aubrey Randall M.D. 07/14/2024 11:04 AM Discharge Plan Visit Data Chief Complaint: Abdominal Pain Stated Complaint: ABDOMINAL PAIN, VOMITING ED Provider: Reynold Frederick Discharge Problem: Gastroenteritis, Upper GI bleed Patient Disposition: Admitted As Inpatient Discharge Instructions Interventions: ED Discharge Assessment Last Done: 07/14/24 15:51
[2024-07-14] MEDS: SODIUM CHLORIDE 0.9% 1,000 ML IV ONE (09:04)
[2024-07-14] MEDS: ONDANSETRON INJ 2 MG/ML 2 ML VIAL IV STA (09:04)
[2024-07-14 09:28] LABS: Basophils # (auto) 0.04 K/uL (0.00-0.20); Basophils % (auto) 0.6 %; Eosinophils # (auto) 0.03 K/uL (0.00-0.50); Eosinophils % (auto) 0.5 %; Hematocrit (blood only) 44.7 % (42.0-52.0); Hemoglobin 15.5 g/dl (14.0-18.0); Immature Granulocytes # (auto) 0.01 K/uL (0.01-0.20); Immature Granulocytes % (auto) 0.2 %; Lymphocytes # (auto) 0.88 K/uL (1.20-3.40); Lymphocytes % (auto) 14.2 %; Mean Corpuscular Hemoglobin 31.2 pg (25.0-34.0); Mean Corpuscular Hgb Conc 34.7 g/dL (32.0-36.0); Mean Corpuscular Volume 89.9 fL (80.0-100.0); Mean Platelet Volume 10.2 fL (9.4-12.4); Monocytes # (auto) 0.61 K/uL (0.11-0.59); Monocytes % (auto) 9.8 %; Neutrophils # (auto) 4.63 K/uL (1.40-6.50); Neutrophils % (auto) 74.7 %; Platelet Count 200 K/uL (130-400); RDW Coefficient of Variation 12.7 % (11.5-14.5); RDW Standard Deviation 41.4 fL (36.4-46.3); Red Blood Count 4.97 M/uL (4.70-6.10)
[2024-07-14 09:52] LABS: Alanine Aminotransferase 18 U/L (7-52); Albumin Level 4.4 gm/dl (3.4-5.0); Alkaline Phosphatase 66 U/L (34-104); Anion Gap 8 (3-11); BUN Creatinine Ratio 16.7 (10-20); Bilirubin,Total 0.9 mg/dl (0.2-1.0); Blood Urea Nitrogen 15 mg/dl (6-23); Calcium 9.9 mg/dl (8.6-10.3); Carbon Dioxide 33 mmol/L (21-32); Chloride 99 mmol/L (98-107); Creatinine Clr Calc Pharmacy 64.5 ml/min; Est GFR (African American) 98.5 ml/min; Glucose 136 mg/dl (70-99(Fasting)); Lipase 30 U/L (11-82); Magnesium 1.9 mg/dl (1.7-2.4); Sodium 140 mmol/L (136-145)
[2024-07-14 09:57] LABS: Partial Thromboplastin Time 26 Seconds (21-31); Prothrombin Time 10.4 Seconds (9.0-12.0)
[2024-07-14] MEDS: PANTOprazole 80 MG in DEXTROSE 5% 100 ML IV STA (10:15)
[2024-07-14] MEDS: OPTIRAY 320 100ml IV ONE (10:28)
[2024-07-14 10:29] LABS: Bilirubin Direct 0.2 mg/dl (0-0.2); Potassium 3.3 mmol/L (3.5-5.1)
--- NOTE | 2024-07-14 11:07 | CT Scan Report ---
CT OF THE ABDOMEN AND PELVIS WITH CONTRAST CLINICAL HISTORY: Acute epigastric pain, coffee ground emesis. COMPARISON STUDY: Abdominal aortic ultrasound April 29, 2019. Prostate MRI December 13, 2022. TECHNIQUE: Following IV administration of 94 mL of Optiray, axial images of the abdomen and pelvis we re obtained from the lung bases to the proximal femurs. Images were reviewed in the axial, sagittal, and coronal planes. IV contrast was administered without complication. Automated exposure control wa s utilized for the study. A dose lowering technique was utilized adhering to the principles of ALARA . CT DOSE: 1063.15 mGy.cm FINDINGS: Lung bases are unremarkable. There is mild circumferential wall thickening of the distal es ophagus. No pneumatosis, free air or portal venous gas is present. The stomach is mildly distended an d fluid-filled. Multiple small bowel loops are also mildly dilated and fluid-filled. There is increas ed stool within the small bowel. A well-defined transition point is not identified. There is minimal mesenteric stranding. The liver, spleen, adrenal glands and pancreas are unremarkable. There is no bi liary or pancreatic ductal dilatation. There is extensive atherosclerotic plaque within the abdominal aorta. Attenuation bilateral renal lesions represent cysts. There is no hydronephrosis. There is no lymphadenopathy. There are no fluid collections. The prostate is enlarged, measuring 5.7 cm in transv erse diameter. There are small fat-containing bilateral inguinal hernias. IMPRESSION: 1. Mild circumferential wall thickening of the distal esophagus. This favors esophagitis. 2. Fluid-filled mildly distended stomach. Multiple distended fluid-filled small bowel loops. The find ings may reflect a gastroenteritis. Although no well-defined transition point, a partial small bowel obstruction could appear similar. Radiographic follow-up is recommended. 3. Multiple renal cysts. 4. Enlarged prostate. No hydronephrosis. ACT 112: Negative or not required by law. Electronically signed by: Aubrey Randall M.D. 07/14/2024 11:04 AM
--- NOTE | 2024-07-14 11:33 | History & Physical Report ---
Date of Service July 14, 2024 Assessment & Plan (1) Partial bowel obstruction: Plan: 3 weeks of constipation (will probably need laxatives following acute episode resolution) followed by sudden worsening yesterday nausea, vomiting, abdominal pain Consider follow up colonoscopy given new change in bowel habits Suspected food/viral gastroenteritis - stool PCR ordered NPO (holding PO medications at this time), IV fluids Acetaminophen 1st line for pain, morphine prescribed for further pain but do not give if he is due acetaminophen and try to avoid as much as possible as will inevitably prolong hospitalization (2) Upper GI bleed: Plan: Suspected with coffee ground emesis and GERD. No current anemia. FOB. q12h CBC. Pantoprazole 80mg IV given in ER, continue 40mg IV BID Consult gastroenterology (3) Atrial fibrillation: Plan: Holding Eliquis due to concern for UGI bleed Will monitor over the course of the day to decide if he requires atenolol tonight for rate control (4) Gastroenteritis: (5) Constipation: Plan VTE Prophylaxis - SCDs Diet - NPO Disposition - admit to med/tele Admission and Anticipated Discharge Date Admission Date: July 14, 2024 History of Present Illness Chief Complaint: Abdominal pain Primary Care Provider: Nabil Yoon Scout Contreras is a 74 year old male who presents to the ER with abdominal pain. He reports 3 weeks of constipation which he puts down to his diet change with le ss cherries since the summer. Abdominal pain started yesterday at 230 to 3 PM as a constant pain generalized all over his abdomen without radiation. He lay down on the couch and try going to the bathroom to pass a small amount of stool with limited success in alleviation of the pain. He took Pepto-Bismol with no alleviation. He went to his sister's house and drank a beer following this and reports it was tough to keep this down. He took a tums following this which did not help. Around 9 PM his pain instantly got a lot worse while lying down to go to bed. He felt a lot of reflux. Pain severity 7-8 out of 10. He was gagging and trying to vomit all night long. He was good for 15 to 20 minutes and then the same thing would happen. He notes the vomit looked like coffee grounds. He did not take any of his medications this morning and came to the ER due to ongoing symptoms. He denies any recent NSAID use. He takes Eliquis for atrial fibrillation which she last took last night. He reports a possible gastric ulcer 18 years old but had no EGD at that time to confirm it. He reports his last colonoscopy was in 2017 and did not show any abnormalities. Allergies Allergy/AdvReac Type Severity Reaction Status Date / Time penicillin V [From Pen-Vee K] Allergy Unknown Rash Verified 07/14/24 11:30 pollen extracts Allergy Unknown RUNNY Verified 07/14/24 11:30 NOSE, SNEEZING, ITCHY EYES Home Medications Medication Instructions Recorded Confirmed Type atenolol 25 mg tablet 25 mg PO PM 07/16/19 07/14/24 History atorvastatin 40 mg tablet 40 mg PO QPM 07/16/19 07/14/24 History hydrochlorothiazide 25 mg tablet 25 mg PO QAM 07/16/19 07/14/24 History levothyroxine 75 mcg tablet 75 mcg PO DAILYBB 07/16/19 07/14/24 History acetaminophen 500 mg tablet 1,000 mg PO Q6H PRN Pain 04/24/21 07/14/24 History (Tylenol Extra Strength) gabapentin 300 mg capsule 300 mg PO QPM 04/24/21 07/14/24 History Cbd Capsule 1 dose PO DAILY 12/28/22 07/14/24 History tramadol 50 mg tablet 50 - 100 mg (1 - 2 x 50 mg) PO Q6H 01/04/23 07/14/24 Rx PRN pain #20 tabs apixaban 5 mg tablet (Eliquis) 5 mg PO BID 07/14/24 07/14/24 History buspirone 30 mg tablet 15 mg PO QAM 07/14/24 07/14/24 History magnesium 250 mg tablet 250 mg PO QPM 07/14/24 07/14/24 History melatonin 5 mg tablet 5 mg PO HS PRN Sleep 07/14/24 07/14/24 History multivitamin 1 tab PO QAM 07/14/24 07/14/24 History tamsulosin 0.4 mg capsule 0.4 mg PO QPM 07/14/24 07/14/24 History Past Med/Surg History Problem List (Updated 07/14/24 @ 12:01 by Ramesh Ricketts MD) Constipation Gastroenteritis Upper GI bleed Partial bowel obstruction BPH with obstruction/lower urinary tract symptoms Cubital tunnel syndrome on right Hypothyroidism (Chronic) Hypertension (Chronic) Bilateral leg weakness (Acute) Nocturia (Acute) Elevated PSA (Acute) Bronchitis No history of previous surgery Carpal tunnel syndrome on both sides Medical History (Updated 07/14/24 @ 12:01 by Ramesh Ricketts MD) Anxiety Leg weakness HX / EVAL FOR / NO FINDINGS/REASON FOR GABAPENTIN...EFFECTIVE Hypothyroid History of high cholesterol Borderline high blood pressure Cubital tunnel syndrome, bilateral Atrial fibrillation DX 2003 OR 2004 NO HX CARDIOVERSION ON WARFARIN Surgical History History of tonsillectomy History of colonoscopy Family History Grandmother (Maternal) Diabetes Mother Diabetes Other Hypertension Social History Smoking Status: Former smoker Do You Dip or Chew Tobacco: No; Hx Substance Use: No Preferred Language: Russian Communication Ability: Effective Production Hand Required: No Beliefs That Will Affect Care: None Current Living Situation: Spouse Feels Safe at Home: Yes Assistive Devices: Hearing Aid - Bilateral Review of Systems Review of Systems: All systems reviewed & are unremarkable except as noted in HPI & below Physical Exam Constitutional: WD/WN, vitals as above Respiratory: normal respiratory effort, lungs clear to auscultation Cardiovascular: Rate/Rhythm: regular rate and + irregularly irregular Heart Sounds: no murmur Extremities: normal capillary refill; no calf tenderness and no pedal edema Gastrointestinal (Abdomen): Inspection/Auscultation: abdomen normal to inspection; abdomen not distended Percussion/Palpation: + abdomen tender (generalized) and abdomen soft; no guarding and abdomen not rigid Results & Data Results & Data Vital Signs (Past 12 Hours) Vital Signs Temp Pulse Resp BP Pulse Ox O2 Del Method 07/14/24 09:58 89 07/14/24 08:27 36.4 C L 91 H 20 139/93 93 Room Air Laboratory Results Abnormal lab results 07/14/24 07/14/24 Range/Units 09:09 09:56 Lymph # (Auto) 0.88 L (1.20-3.40) K/uL [place] # (Auto) 0.61 H (0.11-0.59) K/uL Potassium 3.3 L (3.5-5.1) mmol/L Carbon Dioxide 33 H (21-32) mmol/L Glucose 136 H (70-99(Fasting)) mg/dl Diagnostic Findings CT OF THE ABDOMEN AND PELVIS WITH CONTRAST CLINICAL HISTORY: Acute epigastric pain, coffee ground emesis. COMPARISON STUDY: Abdominal aortic ultrasound April 29, 2019. Prostate MRI December 13, 2022. TECHNIQUE: Following IV administration of 94 mL of Optiray, axial images of the abdomen and pelvis were obtained from the lung bases to the proximal femurs. Images were reviewed in the axial, sagittal, and coronal planes. IV contrast was administered without complication. Automated exposure control was utilized for the study. A dose lowering technique was utilized adhering to the principles of ALARA. CT DOSE: 1063.15 mGy.cm FINDINGS: Lung bases are unremarkable. There is mild circumferential wall thickening of the distal esophagus. No pneumatosis, free air or portal venous gas is present. The stomach is mildly distended and fluid-filled. Multiple small bowel loops are also mildly dilated and fluid-filled. There is increased stool within the small bowel. A well-defined transition point is not identified. There is minimal mesenteric stranding. The liver, spleen, adrenal glands and pancreas are unremarkable. There is no biliary or pancreatic ductal dilatation. There is extensive atherosclerotic plaque within the abdominal aorta. Attenuation bilateral renal lesions represent cysts. There is no hydronephrosis. There is no lymphadenopathy. There are no fluid collections. The prostate is enlarged, measuring 5.7 cm in transverse diameter. There are small fat-containing bilateral inguinal hernias. IMPRESSION: 1. Mild circumferential wall thickening of the distal esophagus. This favors esophagitis. 2. Fluid-filled mildly distended stomach. Multiple distended fluid-filled small bowel loops. The findings may reflect a gastroenteritis. Although no well-define d transition point, a partial small bowel obstruction could appear similar. Radiographic follow-up is recommended. 3. Multiple renal cysts. 4. Enlarged prostate. No hydronephrosis. Medications Administered ER medications given: Ondansetron 4 mg IV Normal saline 1 L bolus Pantoprazole 80 mg IV Dilaudid 0.5 mg IV ECG Additional Comments: Ordered and pending Code Status & VTE Plan Code Status Full VTE Prophylaxis Plan VTE Prophylaxis will be ordered: Yes PG Care Time/CCT Total # of Minutes Spent Total Time Spent with Patient: Total time spent is greater than 50% in coordination of care (as documented) at patient's floor/unit and/or counseling patient: Coding Level of Care Code 93594 INT INP/OBS CARE 375MIN Diagnoses Partial bowel obstruction K56.600 Upper GI bleed K92.2 Atrial fibrillation I48.91 Gastroenteritis K52.9 Constipation K59.00
[2024-07-14] MEDS: HYDROmorphone INJ 0.5 MG/0.5 ML SYR IV STA (12:10)
[2024-07-14] MEDS: ACETAMINOPHEN 1,000 MG/100 ML VIAL IV STA (13:04)
[2024-07-14] MEDS ORDERED: ACETAMINOPHEN 1,000 MG/100 ML VIAL IV PRN (14:37)
[2024-07-14] MEDS ORDERED: MoRPHine SULFATE 2 MG/ML CARP IV PRN ×2 (14:37→14:42)
[2024-07-14] MEDS: LACTATED RINGER'S 1,000 ML IV SCH (15:13)
[2024-07-14] MEDS: POTASSIUM CHLORIDE / WTR 10 MEQ/100 ML PLCT IV SCH (17:47)
[2024-07-14 18:06] LABS: Hematocrit (blood only) 43.7 % (42.0-52.0); Hemoglobin 14.8 g/dl (14.0-18.0); Mean Corpuscular Hemoglobin 31.8 pg (25.0-34.0); Mean Corpuscular Hgb Conc 33.9 g/dL (32.0-36.0); Mean Platelet Volume 10.1 fL (9.4-12.4); Platelet Count 174 K/uL (130-400); RDW Coefficient of Variation 12.8 % (11.5-14.5); Red Blood Count 4.65 M/uL (4.70-6.10)
[2024-07-14] MEDS: ONDANSETRON INJ 2 MG/ML 2 ML VIAL IV PRN (18:11)
[2024-07-14] MEDS: PANTOprazole 40 MG in SYRINGE 0 ML IV SCH (19:11)
[2024-07-15 05:57] LABS: Hematocrit (blood only) 38.7 % (42.0-52.0); Hemoglobin 13.2 g/dl (14.0-18.0); Mean Corpuscular Hemoglobin 31.1 pg (25.0-34.0); Mean Corpuscular Hgb Conc 34.1 g/dL (32.0-36.0); Mean Corpuscular Volume 91.1 fL (80.0-100.0); Mean Platelet Volume 10.1 fL (9.4-12.4); Platelet Count 148 K/uL (130-400); RDW Coefficient of Variation 12.8 % (11.5-14.5); RDW Standard Deviation 42.1 fL (36.4-46.3); Red Blood Count 4.25 M/uL (4.70-6.10); White Blood Count 5.78 K/ul (4.8-10.8)
[2024-07-15 06:13] LABS: Albumin Globulin Ratio 1.8 (0.9-2); Albumin Level 3.5 gm/dl (3.4-5.0); Bilirubin,Total 0.8 mg/dl (0.2-1.0); Calcium 8.4 mg/dl (8.6-10.3); Creatinine Clr Calc Pharmacy 79.9 ml/min; Est GFR (African American) 103.4 ml/min; Est GFR (Non-African American) 89.2 ml/min; Potassium 3.7 mmol/L (3.5-5.1); Total Protein 5.5 gm/dl (6.0-8.3)
[2024-07-15] MEDS: METOPROLOL TARTRATE 25 MG TAB PO SCH (08:34)
--- NOTE | 2024-07-15 13:25 | Gastrointestinal Consultation ---
Date of Consultation July 15, 2024 Assessment & Plan (1) Upper GI bleed: Coffee ground emesis likely related to esophagitis. Will plan EGD since he will be on eliquis. Do not feel colonoscopy necessary at this time and can be done as an outpatient as he will be due over the next couple of years. H/H seem to be holding steady. History of Present Illness Reason for Consultation: coffee ground emesis Attending Physician: Alice Jama MD History of Present Illness 74 year old man who spent the day Monday with abdominal pain and it evolved into emesis of coffee ground material. He ate apples and a bologna hoagie on Monday but he doesn't think it was bad. He developed what he called reflux symptoms while this was going on. He does have heartburn on a fairly regular basis but only takes TUMS for it. His last colonoscopy was in [id number] and was unremarkable. He has never had an EGD. Prior to this starting he was battling constipation with difficulty moving his bowels. He says his stools changed consistency and it was difficult to pass them into the toilet. Allergies Allergy/AdvReac Type Severity Reaction Status Date / Time penicillin V [From Dave-Irasema Antunez] Allergy Unknown Rash Verified 07/14/24 11:30 pollen extracts Allergy Unknown RUNNY Verified 07/14/24 11:30 NOSE, SNEEZING, ITCHY EYES Home Medications Medication Instructions Recorded Confirmed Type atenolol 25 mg tablet 25 mg PO PM 07/16/19 07/14/24 History atorvastatin 40 mg tablet 40 mg PO QPM 07/16/19 07/14/24 History hydrochlorothiazide 25 mg tablet 25 mg PO QAM 07/16/19 07/14/24 History levothyroxine 75 mcg tablet 75 mcg PO DAILYBB 07/16/19 07/14/24 History acetaminophen 500 mg tablet 1,000 mg PO Q6H PRN Pain 04/24/21 07/14/24 History (Tylenol Extra Strength) gabapentin 300 mg capsule 300 mg PO QPM 04/24/21 07/14/24 History Cbd Capsule 1 dose PO DAILY 12/28/22 07/14/24 History tramadol 50 mg tablet 50 - 100 mg (1 - 2 x 50 mg) PO Q6H 01/04/23 07/14/24 Rx PRN pain #20 tabs apixaban 5 mg tablet (Eliquis) 5 mg PO BID 07/14/24 07/14/24 History buspirone 30 mg tablet 15 mg PO QAM 07/14/24 07/14/24 History magnesium 250 mg tablet 250 mg PO QPM 07/14/24 07/14/24 History melatonin 5 mg tablet 5 mg PO HS PRN Sleep 07/14/24 07/14/24 History multivitamin 1 tab PO QAM 07/14/24 07/14/24 History tamsulosin 0.4 mg capsule 0.4 mg PO QPM 07/14/24 07/14/24 History Patient History Medical History Anxiety Leg weakness HX / EVAL FOR / NO FINDINGS/REASON FOR GABAPENTIN...EFFECTIVE Hypothyroid History of high cholesterol Borderline high blood pressure Cubital tunnel syndrome, bilateral Atrial fibrillation DX 2003 OR 2004 NO HX CARDIOVERSION ON WARFARIN Surgical History History of tonsillectomy History of colonoscopy Family History Grandmother (Maternal) Diabetes Mother Diabetes Other Hypertension Social History Smoking Status: Former smoker Do You Dip or Chew Tobacco: No; Hx Alcohol Use: Yes Alcohol type: beer Hx Substance Use: No Preferred Language: Citizen Of [place] Communication Ability: Effective 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 Required: No Beliefs That Will Affect Care: Anabaptism Current Living Situation: Spouse Feels Safe at Home: Yes Assistive Devices: None Review of Systems Review of Systems: All systems reviewed & are unremarkable except as noted in HPI & below Physical Exam Constitutional: WD/WN, vitals as above Neck: trachea midline, no thyromegaly Respiratory: normal respiratory effort, lungs clear to auscultation Cardiovascular: RRR, no murmur, no edema Gastrointestinal (Abdomen): normal bowel sounds, soft, nontender, no hepatosplenomegaly Musculoskeletal: Extremities: extremities normal to inspection Results & Data Vital Signs (Past 12 Hours) Vital Signs Temp Pulse Pulse Resp BP Pulse Ox O2 Del Method 07/15/24 11:17 36.4 C L 84 18 154/91 H 97 Room Air 07/15/24 08:18 36.8 C 81 18 119/71 92 Room Air 07/15/24 05:49 103 H 07/15/24 03:34 36.8 C 71 16 111/70 94 Room Air Laboratory Results 07/15/24 07/14/24 Range/Units 05:36 17:52 WBC 5.78 7.40 (4.8-10.8) K/ul RBC 4.25 L 4.65 L (4.70-6.10) M/uL Hgb 13.2 L 14.8 (14.0-18.0) g/dl Hct 38.7 L 43.7 (42.0-52.0) % MCV 91.1 94.0 (80.0-100.0) fL MCH 31.1 31.8 (25.0-34.0) pg MCHC 34.1 33.9 (32.0-36.0) g/dL RDW Std Deviation 42.1 44.0 (36.4-46.3) fL RDW Coeff of Hanna 12.8 12.8 (11.5-14.5) % Plt Count 148 174 (130-400) K/uL MPV 10.1 10.1 (9.4-12.4) fL Sodium 139 (136-145) mmol/L Potassium 3.7 (3.5-5.1) mmol/L Chloride 106 (98-107) mmol/L Carbon Dioxide 28 (21-32) mmol/L Anion Gap 5 (3-11) BUN 16 (6-23) mg/dl Creatinine 0.80 (0.6-1.4) mg/dl Est Cr Clr Drug Dosing 79.9 ml/min Est GFR ( Amer) 103.4 ml/min Est GFR (Non-Af Amer) 89.2 ml/min BUN/Creatinine Ratio 20.0 (10-20) Glucose 94 (70-99(Fasting)) mg/dl Calcium 8.4 L (8.6-10.3) mg/dl Total Bilirubin 0.8 (0.2-1.0) mg/dl AST 17 (13-39) U/L ALT 12 (7-52) U/L Alkaline Phosphatase 52 (34-104) U/L Total Protein 5.5 L D (6.0-8.3) gm/dl Albumin 3.5 (3.4-5.0) gm/dl Globulin 2.0 L (2.5-4.0) gm/dl Albumin/Globulin Ratio 1.8 (0.9-2) Blood Type A Positive Antibody Screen NEGATIVE Diagnostic Findings Abdomen/Pelvis CT 07/14/24 08:45 CT OF THE ABDOMEN AND PELVIS WITH CONTRAST CLINICAL HISTORY: Acute epigastric pain, coffee ground emesis. COMPARISON STUDY: Abdominal aortic ultrasound April 29, 2019. Prostate MRI December 13, 2022. TECHNIQUE: Following IV administration of 94 mL of Optiray, axial images of the abdomen and pelvis were obtained from the lung bases to the proximal femurs. Images were reviewed in the axial, sagittal, and coronal planes. IV contrast was administered without complication. Automated exposure control was utilized for the study. A dose lowering technique was utilized adhering to the principles of ALARA. CT DOSE: 1063.15 mGy.cm FINDINGS: Lung bases are unremarkable. There is mild circumferential wall thickening of the distal esophagus. No pneumatosis, free air or portal venous gas is present. The stomach is mildly distended and fluid-filled. Multiple small bowel loops are also mildly dilated and fluid-filled. There is increased stool within the small bowel. A well-defined transition point is not identified. There is minimal mesenteric stranding. The liver, spleen, adrenal glands and pancreas are unremarkable. There is no biliary or pancreatic ductal dilatation. There is extensive atherosclerotic plaque within the abdominal aorta. Attenuation bilateral renal lesions represent cysts. There is no hydronephrosis. There is no lymphadenopathy. There are no fluid collections. The prostate is enlarged, measuring 5.7 cm in transverse diameter. There are small fat-containing bilateral inguinal hernias. IMPRESSION: 1. Mild circumferential wall thickening of the distal esophagus. This favors esophagitis. 2. Fluid-filled mildly distended stomach. Multiple distended fluid-filled small bowel loops. The findings may reflect a gastroenteritis. Although no well- defined transition point, a partial small bowel obstruction could appear similar. Radiographic follow-up is recommended. 3. Multiple renal cysts. 4. Enlarged prostate. No hydronephrosis. ACT 112: Negative or not required by law. Electronically signed by: Aubrey Randall M.D. 07/14/2024 11:04 AM
[2024-07-15] MEDS ORDERED: traMADol HCL 50 MG TABLET PO PRN (13:45)
[2024-07-15] MEDS ORDERED: ACETAMINOPHEN 500 MG TAB PO PRN (13:45)
[2024-07-15] MEDS ORDERED: MELATONIN 3 MG TAB PO PRN (13:52)
[2024-07-15] MEDS: busPIRone 15 MG TAB PO SCH (14:15)
--- NOTE | 2024-07-15 17:06 | Hospitalist Progress Note ---
Date of Service July 15, 2024 Assessment & Plan (1) Esophagitis: Plan: 74-year-old man admitted with nausea and vomiting, coffee-ground emesis and esophageal dysphagia. CT imaging done in ED notable for appearance of distal esophagitis and dilated stomach and small bowel - consulted gastroenterology, Dr. Ramirez plans EGD tomorrow - continue IV PPI twice daily - mild anemia with small probably dilutional drop in hematocrit, not very concerning for hemodynamically significant acute GI bleed and unlikely to need transfusion - check iron studies - a.m. CBC (2) Partial bowel obstruction: Plan: 3 weeks of constipation (will probably need laxatives following acute episode resolution) followed by sudden worsening yesterday nausea, vomiting, abdominal pain. CT with dilated small bowel CT appearance consistent with partial small bowel obstruction or acute gastroenteritis abdomen is nontender today, no abdominal pain or further nausea, and passing flatus, will advance diet to clear liquids avoid opioids, eventually may need bowel regimen GI advised screening colonoscopy at normal intervals BMP in a.m. (3) Atrial fibrillation: Plan: Holding Eliquis because of procedure and coffee-ground emesis started metoprolol today with improvement in rate control (4) Constipation: Plan VTE Prophylaxis - SCDs, probably resume apixaban if low risk based on EGD tomorrow Admission and Anticipated Discharge Date Admission Date: July 14, 2024 Subjective does feel better however has had dysphagia feels like food and liquids get stuck this is in the substernal area and sometimes he has regurgitation no abdominal pain no further nausea or vomiting passing plenty of gas but no bowel movements overnight recently constipated for about 3 weeks Physical Exam 2 Physical Exam: PHYSICAL EXAMINATION Last 24h vital signs reviewed, see documentation in flowsheet General: comfortable appearing, no distress HEENT: Normocephalic, atraumatic, pupils round and equal, sclerae anicteric, no conjunctival injection, moist mucus membranes Lungs: Normal respiratory effort. Clear to auscultation bilaterally. No RRW Heart: irregularly irregular and mildly tachycardic, no murmurs. No JVD Abdomen: Soft, nontender, minimally distended. Bowel sounds present. no RRG Extremities: Warm, dry, well-perfused. No extremity edema. Neuro: Alert and oriented x 4, face symmetric, moves 4 extremities well Psych: Normal affect and behavior Results & Data Results & Data Vital Signs (Past 12 Hours) Vital Signs Temp Pulse Pulse Resp BP Pulse Ox O2 Del Method 07/15/24 15:27 36.5 C 70 20 139/81 95 Room Air 07/15/24 13:02 86 07/15/24 11:17 36.4 C L 84 18 154/91 H 97 Room Air 07/15/24 08:18 36.8 C 81 18 119/71 92 Room Air 07/15/24 05:49 103 H Laboratory Results 07/15/24 05:36 07/15/24 05:36 PG Care Time/CCT Total # of Minutes Spent Total Time Spent with Patient: Total time spent is greater than 50% in coordination of care (as documented) at patient's floor/unit and/or counseling patient: Coding Level of Care Code 86098 SUB INP/OBS CARE 235MIN Diagnoses Esophagitis K20.90 Partial bowel obstruction K56.600 Atrial fibrillation I48.91 Constipation K59.00
[2024-07-15] MEDS: ATORVASTATIN 40 MG TAB PO SCH (21:12)
[2024-07-15] MEDS: GABAPENTIN 300 MG CAP PO SCH (21:12)
[2024-07-15] MEDS: TAMSULOSIN HCL 0.4 MG CAP PO SCH (21:13)
[2024-07-15] MEDS: MAGNESIUM OXIDE 400 MG TAB PO SCH (21:37)
[2024-07-16] MEDS: LEVOTHYROXINE SODIUM 75 MCG TABLET PO SCH (05:51)
[2024-07-16 07:11] LABS: Hematocrit (blood only) 35.6 % (42.0-52.0); Hemoglobin 12.3 g/dl (14.0-18.0); Mean Corpuscular Hemoglobin 31.1 pg (25.0-34.0); Mean Corpuscular Hgb Conc 34.6 g/dL (32.0-36.0); Mean Corpuscular Volume 90.1 fL (80.0-100.0); Mean Platelet Volume 10.3 fL (9.4-12.4); Platelet Count 142 K/uL (130-400); RDW Coefficient of Variation 12.4 % (11.5-14.5); Red Blood Count 3.95 M/uL (4.70-6.10); White Blood Count 3.93 K/ul (4.8-10.8)
[2024-07-16 07:32] LABS: BUN Creatinine Ratio 13.2 (10-20); Est GFR (African American) 110.6 ml/min; Est GFR (Non-African American) 95.4 ml/min; Magnesium 1.5 mg/dl (1.7-2.4); Potassium 3.4 mmol/L (3.5-5.1)
[2024-07-16] MEDS: POTASSIUM CHLORIDE / WTR 10 MEQ/100 ML PLCT IV ONE (08:39)
[2024-07-16] MEDS: MAGNESIUM SULFATE / D5W 1 GM/100 ML BAG IV SCH (08:39)
[2024-07-16] MEDS: POTASSIUM CHLORIDE 20 MEQ in LACTATED RINGER'S 1,000 ML IV SCH (10:12)
--- NOTE | 2024-07-16 10:26 | Anesthesiology Consultation ---
Date of Service July 16, 2024 Assessment & Plan Chart Review Chart Review: Acceptable Risk for Surgery, Patient NOT seen in Pre Admission Testing and manager entry initiated Consults Requested none Proposed Anesthesia Anesthesia Type: MAC History Surgery Operation Date: 07/16/24 17:35 Proposed Procedures p Esophagogastroduodenoscopy Dr. James Ramirez Jr, MD Height/Weight Height: 5 ft 5 in Weight: 75.2 kg Allergies Allergy/AdvReac Type Severity Reaction Status Date / Time penicillin V [From Pen-Vee K] Allergy Unknown Rash Verified 07/14/24 11:30 pollen extracts Allergy Unknown RUNNY Verified 07/14/24 11:30 NOSE, SNEEZING, ITCHY EYES Medications Home Medications Medication Instructions Recorded Confirmed Last Taken atenolol 25 mg tablet 25 mg PO PM 07/16/19 07/14/24 07/13/24 atorvastatin 40 mg tablet 40 mg PO QPM 07/16/19 07/14/24 07/13/24 hydrochlorothiazide 25 mg tablet 25 mg PO QAM 07/16/19 07/14/24 07/13/24 levothyroxine 75 mcg tablet 75 mcg PO DAILYBB 07/16/19 07/14/24 07/13/24 acetaminophen 500 mg tablet 1,000 mg PO Q6H PRN Pain 04/24/21 07/14/24 01/03/23 (Tylenol Extra Strength) gabapentin 300 mg capsule 300 mg PO QPM 04/24/21 07/14/24 07/13/24 Cbd Capsule 1 dose PO DAILY 12/28/22 07/14/24 07/13/24 tramadol 50 mg tablet 50 - 100 mg (1 - 2 x 50 mg) PO Q6H 01/04/23 07/14/24 Unknown PRN pain #20 tabs apixaban 5 mg tablet (Eliquis) 5 mg PO BID 07/14/24 07/14/24 07/13/24 buspirone 30 mg tablet 15 mg PO QAM 07/14/24 07/14/24 07/13/24 magnesium 250 mg tablet 250 mg PO QPM 07/14/24 07/14/24 07/13/24 melatonin 5 mg tablet 5 mg PO HS PRN Sleep 07/14/24 07/14/24 Unknown multivitamin 1 tab PO QAM 07/14/24 07/14/2424 tamsulosin 0.4 mg capsule 0.4 mg PO QPM 07/14/24 07/14/24 07/13/24 Active Medications Generic Name Dose Route Start Last Admin Trade Name Margarito PRN Reason Stop Dose Admin Atorvastatin Calcium 40 mg 07/15/24 21:00 07/15/24 21:12 Atorvastatin 40 Mg Tab PO 08/14/24 20:59 40 mg QPM JAMIA Administration Buspirone HCl 15 mg 07/15/24 14:00 07/16/24 08:41 Buspirone 15 Mg Tab PO 08/14/24 13:59 15 mg QAM JAMIA Administration Gabapentin 300 mg 07/15/24 21:00 07/15/24 21:12 Gabapentin 300 Mg Cap PO 08/14/24 20:59 300 mg QPM JAMIA Administration Pantoprazole Sodium 40 mg/ 10 mls @ 5 mls/min 07/14/24 21:00 07/16/24 08:41 Syringe IV 08/13/24 20:59 5 mls/min BID JAMIA Administration Potassium Chloride 20 meq/ 1,010 mls @ 125 mls/hr 07/16/24 09:15 07/16/24 10:12 Lactated Ringer's IV 08/13/24 09:14 125 mls/hr .Q8H5M JAMIA Administration Magnesium Sulfate/Dextrose 1 gm in 100 mls @ 50 mls/hr 07/16/24 08:30 07/16/24 08:39 Magnesium Sulfate / D5w IV 07/16/24 12:29 50 mls/hr Q2H JAMIA Administration Levothyroxine Sodium 75 mcg 07/16/24 06:30 07/16/24 05:51 Levothyroxine Sodium 75 Mcg Tablet PO 08/15/24 06:29 75 mcg DAILYBB JAMIA Administration Magnesium Oxide 400 mg 07/15/24 21:00 07/15/24 21:37 Magnesium Oxide 400 Mg Tab PO 08/14/24 20:59 Not Given QPM JAMIA Metoprolol Tartrate 25 mg 07/15/24 09:00 07/16/24 08:40 Metoprolol Tartrate 25 Mg Tab PO 08/14/24 08:59 25 mg BID JAMIA Administration Ondansetron HCl 4 mg 07/14/24 14:37 07/14/24 23:02 Ondansetron Inj 2 Mg/Ml 2 Ml Vial IV 08/13/24 14:36 4 mg Q4H PRN Administration Nausea Tamsulosin HCl 0.4 mg 07/15/24 21:00 07/15/24 21:13 Tamsulosin Hcl 0.4 Mg Cap PO 08/14/24 20:59 0.4 mg QPM JAMIA Administration Past Medical History Medical History Anxiety Leg weakness HX / EVAL FOR / NO FINDINGS/REASON FOR GABAPENTIN...EFFECTIVE Hypothyroid History of high cholesterol Borderline high blood pressure Cubital tunnel syndrome, bilateral Atrial fibrillation DX 2003 OR 2004 NO HX CARDIOVERSION ON WARFARIN Past Family History Family History Grandmother (Maternal) Diabetes Mother Diabetes Other Hypertension Past Surgical History Surgical History History of tonsillectomy History of colonoscopy Social History Smoking Status: Former smoker tobacco type: cigarettes Do You Dip or Chew Tobacco: No Hx Alcohol Use: Yes Alcohol type: beer alcohol intake frequency: 0-2 drinks per day Hx Substance Use: No substance use type: does not use Physical Exam Vital Signs Last Vital Signs Temp 36.8 C 07/16/24 07:31 Pulse 90 07/16/24 07:31 Resp 16 07/16/24 07:31 BP 131/91 07/16/24 07:31 Pulse Ox 95 07/16/24 07:31 O2 Del Method Room Air 07/16/24 07:31 Testing Laboratory Results 07/16/24 05:51 07/16/24 05:51 PT 10.4 Seconds (9.0-12.0) 07/14/24 09:09 INR 1.0 (0.9-1.1) 07/14/24 09:09 APTT 26 Seconds (21-31) 07/14/24 09:09 Blood Type A Positive 07/14/24 17:52 Antibody Screen NEGATIVE 07/14/24 17:52 Electrocardiogram Date: 07/14/24 Findings: + AFIB @ (93) Chest X-Ray Date: 10/03/23 CLINICAL HISTORY: R05.9. Cough. COMPARISON STUDY: Chest CT March 02, 2017. Chest radiograph October 29, 2019. FINDINGS: Lung volumes are normal. Lungs are clear. There is no pneumothorax or pleural effusion. Cardiac size is normal. Mediastinal contours are normal. There is no evidence for pulmonary edema. IMPRESSION: No acute cardiopulmonary findings.
--- NOTE | 2024-07-16 14:24 | History & Physical Report ---
Date of Service July 16, 2024 Assessment & Plan (1) Upper GI bleed: Plan: Pleasant man with hematemesis who needs EGD. Procedure and risks discussed. He agrees Admission and Anticipated Discharge Date Admission Date: July 14, 2024 History of Present Illness Chief Complaint: for EGD Primary Care Provider: Nabil Yoon 74 year old man admitted with coffee ground emesis. He is to have EGD Allergies Allergy/AdvReac Type Severity Reaction Status Date / Time penicillin V [From Pen-Vee K] Allergy Unknown Rash Verified 07/16/24 13:12 pollen extracts Allergy Unknown RUNNY Verified 07/16/24 13:12 NOSE, SNEEZING, ITCHY EYES Home Medications Medication Instructions Recorded Confirmed Type atenolol 25 mg tablet 25 mg PO PM 07/16/19 07/14/24 History atorvastatin 40 mg tablet 40 mg PO QPM 07/16/19 07/14/24 History hydrochlorothiazide 25 mg tablet 25 mg PO QAM 07/16/19 07/14/24 History levothyroxine 75 mcg tablet 75 mcg PO DAILYBB 07/16/19 07/14/24 History acetaminophen 500 mg tablet 1,000 mg PO Q6H PRN Pain 04/24/21 07/14/24 History (Tylenol Extra Strength) gabapentin 300 mg capsule 300 mg PO QPM 04/24/21 07/14/24 History Cbd Capsule 1 dose PO DAILY 12/28/22 07/14/24 History tramadol 50 mg tablet 50 - 100 mg (1 - 2 x 50 mg) PO Q6H 01/04/23 07/14/24 Rx PRN pain #20 tabs apixaban 5 mg tablet (Eliquis) 5 mg PO BID 07/14/24 07/14/24 History buspirone 30 mg tablet 15 mg PO QAM 07/14/24 07/14/24 History magnesium 250 mg tablet 250 mg PO QPM 07/14/24 07/14/24 History melatonin 5 mg tablet 5 mg PO HS PRN Sleep 07/14/24 07/14/24 History multivitamin 1 tab PO QAM 07/14/24 07/14/24 History tamsulosin 0.4 mg capsule 0.4 mg PO QPM 07/14/24 07/14/24 History Past Med/Surg History Problem List Esophagitis Constipation Gastroenteritis (Acute) Upper GI bleed (Acute) Partial bowel obstruction BPH with obstruction/lower urinary tract symptoms Cubital tunnel syndrome on right Hypothyroidism (Chronic) Hypertension (Chronic) Bilateral leg weakness (Acute) Nocturia (Acute) Elevated PSA (Acute) Bronchitis No history of previous surgery Carpal tunnel syndrome on both sides Medical History Anxiety Leg weakness HX / EVAL FOR / NO FINDINGS/REASON FOR GABAPENTIN...EFFECTIVE Hypothyroid History of high cholesterol Borderline high blood pressure Cubital tunnel syndrome, bilateral Atrial fibrillation DX 2003 OR 2004 NO HX CARDIOVERSION ON WARFARIN Surgical History History of tonsillectomy History of colonoscopy Family History Grandmother (Maternal) Diabetes Mother Diabetes Other Hypertension Social History Smoking Status: Former smoker Do You Dip or Chew Tobacco: No; Hx Alcohol Use: Yes Alcohol type: beer Hx Substance Use: No Preferred Language: Khmer Communication Ability: Effective 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 Beliefs That Will Affect Care: Islam Current Living Situation: Spouse Feels Safe at Home: Yes Assistive Devices: None Physical Exam Constitutional: WD/WN, vitals as above Neck: trachea midline, no thyromegaly Respiratory: normal respiratory effort, lungs clear to auscultation Cardiovascular: RRR, no murmur, no edema Gastrointestinal (Abdomen): normal bowel sounds, soft, nontender, no hepatosplenomegaly ASA Classification ASA ASA3 Results & Data Vital Signs (Past 12 Hours) Vital Signs Temp Pulse Pulse Resp BP BP Pulse Ox 07/16/24 13:14 36.9 C 91 H 16 158/95 H 91 07/16/24 12:44 36.5 C 93 H 18 149/89 H 95 07/16/24 10:58 36.4 C L 87 93 H 147/82 H 93 07/16/24 07:31 36.8 C 90 16 131/91 95 07/16/24 05:49 67 O2 Del Method 09/24/24 13:14 Room Air 07/16/24 12:44 Room Air 07/16/24 10:58 Room Air 07/16/24 07:31 Room Air 07/16/24 05:49 Code Status & VTE Plan VTE Prophylaxis Plan VTE Prophylaxis will be ordered: Yes
--- NOTE | 2024-07-16 14:38 | GI REPORT ---
[facility] Patient: MYRA PETTIT : 1950 Sex at : Male Age: 74 Years Procedure: Upper GI endoscopy Date: 07/16/2024 Attending Physician: Yohana Ramirez MD Referring MD: Referred Self; Ramesh Main Indications: - Hematemesis Medications: - Monitored Anesthesia Care - Propofol per Anesthesia - See the Anesthesia note for documentation of the administered medications Complications: - No immediate complications. Estimated Blood Loss: - Estimated blood loss: None. Procedure: - ASA Grade Assessment: III - A patient with severe systemic disease. - The egd scope was introduced through the mouth and advanced to the second part of the duodenum. - The upper GI endoscopy was accomplished without difficulty. - The patient tolerated the procedure well. Findings: - The examined esophagus was normal. - The entire examined stomach was normal. - The examined duodenum was normal. Impression: - Normal esophagus. - Normal stomach. - Normal examined duodenum. - No specimens collected. Recommendation: - Return patient to [facility] for [facility] care. - Advance diet as tolerated. Procedure Code(s): - 26246, Esophagogastroduodenoscopy, flexible, transoral; diagnostic, including collection of specimen(s) by brushing or washing, when performed (separate procedure) Diagnosis Code(s): - K92.0, Hematemesis CPT(R) - 2022 copyright [employer]. All Rights Reserved. The CPT codes, CCI edits and ICD codes generated are intended as suggestions and were generated based on input data. These codes are preliminary and upon industrial technician review may be revised to meet current compliance and payer requirements. The provider is responsible for the final determination of appropriate codes, and modifiers. Dr. Yohana Ramirez MD This document has been electronically signed. Note Initiated:07/16/2024 Note Completed:07/16/2024 2:37 PM [id number]
[2024-07-16] MEDS: LIDOCAINE 2% 2 ML VIAL/AMP(20MG/ML) INFIL ONE (15:42)
[2024-07-16] MEDS: PROPOFOL IV EMULSION 10 MG/ML 20 ML VIAL IV ONE (15:42)
[2024-07-16 17:44] LABS: Hematocrit (blood only) 36.4 % (42.0-52.0); Hemoglobin 13.2 g/dl (14.0-18.0)
--- NOTE | 2024-07-16 18:10 | Hospitalist Progress Note ---
Date of Service July 16, 2024 Assessment & Plan (1) Esophagitis: Plan: suspected based on CT imaging but EGD today with NORMAL esophagus (2) Partial bowel obstruction: Plan: 3 weeks of constipation followed by sudden development of nausea, vomiting, abdominal pain. Admission CT with partial small bowel obstruction or acute gastroenteritis. N/V/pain all resolved. Did have 1 small melena stool while here. Tolerating diet. Clinical picture NOT c/w pSBO. Awaiting stool BioFire. (3) Atrial fibrillation: Plan: cont metoprolol tartrate BID resume Eliquis perhaps tomorrow if no further signs of GI bleeding (H/H remain stable) (4) Constipation: Plan: see discussion above Plan left message for pt's on voicemail this evening Admission and Anticipated Discharge Date Admission Date: July 14, 2024 Subjective saw patient after his EGD today he was feeling well no nausea or emesis no coffee-ground emesis no hematemesis he did have a melena stool 1x since admission still feeling bloated feels like he is constipated Review of Systems Review of Systems: gen - no fevers or chills cv - no chest pain pulm - no dyspnea GI - no true abd pain but mild "ache" Physical Exam Physical Exam: gen - NAD, looks well mouth - MMM neck - no JVD heart - irregularly irregular, s1 s2, no murmur lungs - CTA b/l abd - soft, scantly distended, BS+, NT, no HSM ext - pulses 2+ b/l, no edema psych - a/o x 3 Results & Data Results & Data Vital Signs (Past 12 Hours) Vital Signs Temp Pulse Resp BP BP Pulse Ox O2 Del Method 07/16/24 16:07 36.5 C 88 18 144/94 H 96 Room Air 07/16/24 14:54 87 16 159/95 H 95 Room Air 07/16/24 14:40 96 H 16 135/85 94 Room Air 07/16/24 13:14 36.9 C 91 H 16 158/95 H 91 Room Air 07/16/24 12:44 36.5 C 93 H 18 149/89 H 95 Room Air 07/16/24 10:58 36.4 C L 87 93 H 147/82 H 93 Room Air 07/16/24 07:31 36.8 C 90 16 131/91 95 Room Air Laboratory Results Laboratory Results - last 48 hr 07/16/24 07/16/24 05:51 17:13 WBC 3.93 L RBC 3.95 L Hgb 12.3 L 13.2 L Hct 35.6 L 36.4 L MCV 90.1 MCH 31.1 MCHC 34.6 RDW Std Deviation 41.0 RDW Coeff of Hanna 12.4 Plt Count 142 MPV 10.3 Sodium 138 Potassium 3.4 L Chloride 103 Carbon Dioxide 28 Anion Gap 7 BUN 9 Creatinine 0.68 Est Cr Clr Drug Dosing 93.0 Est GFR ( Amer) 110.6 Est GFR (Non-Af Amer) 95.4 BUN/Creatinine Ratio 13.2 Glucose 85 Calcium 8.0 L Magnesium 1.5 L Iron 89 Transferrin 147 L Ferritin Vitamin B12 284 Folate > 22.30 Diagnostic Findings KUB X-Ray 07/16/24 18:10 KUB CLINICAL HISTORY: Generalized abdominal pain. Small bowel obstruction. FINDINGS: 2 AP, portable, supine abdominal radiographs are correlated with abdominal CT dated 07/14/2024. There is persistent gaseous distention of the small bowel loops which measure up to 3.3 cm in diameter. This indicates persistent obstruction. There are foci of gas noted throughout the colon. No evidence of intraperitoneal free air is seen on these supine images. There are no abnormal abdominal calcifications. Phleboliths are noted in the pelvis. The skeletal structures are osteopenic and appear intact. There is advanced lumbosacral spondylosis as well as scoliosis. The lung bases are clear as imaged. IMPRESSION: Persistent small bowel obstruction. Electronically signed by: Fabrizio Magana M.D. 07/17/2024 7:13 AM PG Care Time/CCT Total # of Minutes Spent Total Time Spent with Patient: Total time spent is greater than 50% in coordination of care (as documented) at patient's floor/unit and/or counseling patient: Coding Level of Care Code 23505 SUB INP/OBS CARE 2/35MIN Diagnoses Esophagitis K20.90 Partial bowel obstruction K56.600 Atrial fibrillation I48.91 Constipation K59.00
[2024-07-16 21:42] LABS: Vitamin B12 284 pg/ml (180-914)
[2024-07-16 21:43] LABS: Folate (Folic Acid),Ser orPlas > 22.30 ng/ml (>5.38)
[2024-07-17 02:01] LABS: Adenovirus F 40/41 PCR Not Detected (NotDetected); Astrovirus PCR Not Detected (NotDetected); Campylobacter PCR Not Detected (NotDetected); Cryptosporidium PCR Not Detected (NotDetected); Cyclospora cayetanensis PCR Not Detected (NotDetected); Entamoeba histolytica PCR Not Detected (NotDetected); Enteroaggregative E.coli(EAEC) Not Detected (NotDetected); Enteropathogenic E.coli (EPEC) Not Detected (NotDetected); Enterotoxigenic E.coli (ETEC) Not Detected (NotDetected); Plesiomonas shigelloides PCR Not Detected (NotDetected); Rotavirus A PCR Not Detected (NotDetected); Salmonella PCR Not Detected (NotDetected); Sapovirus PCR Not Detected (NotDetected); Shiga-like Toxin E.coli (STEC) Not Detected (NotDetected); Shigella/Enteroinvasive E.coli Not Detected (NotDetected); Vibrio cholerae PCR Not Detected (NotDetected); Vibrio species PCR Not Detected (NotDetected); Yersinia enterocolitica PCR Not Detected (NotDetected)
[2024-07-17 02:54] LABS: Norovirus GI/GII PCR DETECTED (NotDetected)
[2024-07-17 02:55] LABS: Giardia lamblia PCR DETECTED (NotDetected)
[2024-07-17 03:47] VITALS: TEMP 97.9
--- NOTE | 2024-07-17 07:14 | XRay Report ---
KUB CLINICAL HISTORY: Generalized abdominal pain. Small bowel obstruction. FINDINGS: 2 AP, portable, supine abdominal radiographs are correlated with abdominal CT dated 07/14/20 24. There is persistent gaseous distention of the small bowel loops which measure up to 3.3 cm in jean carlos meter. This indicates persistent obstruction. There are foci of gas noted throughout the colon. No ev idence of intraperitoneal free air is seen on these supine images. There are no abnormal abdominal ca lcifications. Phleboliths are noted in the pelvis. The skeletal structures are osteopenic and appear intact. There is advanced lumbosacral spondylosis as well as scoliosis. The lung bases are clear as i mariam. IMPRESSION: Persistent small bowel obstruction. Electronically signed by: Fabrizio Magana M.D. 07/17/2024 7:13 AM
[2024-07-17 08:32] VITALS: RESP 18
[2024-07-17] MEDS: metroNIDAZOLE 500 MG TAB PO SCH (09:56)
[2024-07-17 11:36] VITALS: BP 120/74; O2SAT 95
[2024-07-17 14:39] VITALS: PULSE 84
--- NOTE | 2024-07-17 15:50 | Discharge Summary ---
Discharge Summary Date of Service date of admission - July 14, 2024 date of discharge - July 17, 2024 Principal Dx & Hospital Course #1 = Principal Diagnosis (1) Giardia: Patient presented with 3 weeks of constipation followed by sudden development of nausea, vomiting, and abdominal pain. Admission CT with partial small bowel obstruction vs findings that could be consistent with acute gastroenteritis. Admission CT also showed findings possibly consistent with esophagitis. He was seen in consult by [facility]. He ultimately underwent EGD which was entirely normal. His nausea & vomiting resolved and his abdominal discomfort improved. He was tolerating a diet prior to discharge home. His overall clinical picture was NOT consistent with partial SBO. During the stay he underwent stool BioFire testing which was positive for both GIARDIA & NOROVIRUS. I suspect that his several weeks of GI symptoms were more so due to Giardia infection as opposed to norovirus. He was initiated on flagyl for the Giardia. The [facility] infection control office was made aware of his Giardia, and the infection will be reported to the [facility]. The county in [place] will reach out to him as well. The exact source for his Giardia infection was uncertain. At discharge he will - * take flagyl 500mg BID x 7 days * follow-up with [facility] due to the uniqueness of his case and the unusual presentation (2) Norovirus: Stool BioFire was positive for such. I do not think this was the primary cause of his presenting symptoms. He was counseled that if norovirus is indeed present it is a self-limiting viral process that does not require any Rx. (3) Partial bowel obstruction: CT abd/pelvis showed possible partial SBO. However, his clinical picture was not consistent with such. He was moving his bowels while here, tolerating a diet without vomiting, etc. His CT findings were likely due to enteritis from Giardia. (4) Atrial fibrillation: cont atenolol cont Eliquis BID (5) Constipation: see discussion above in #1 of note - some people with Giardia infection can have constipation rather than diarrhea recommend f/u with [facility] to ensure resolution of his Giardia, improvement in his overall bowel symptoms, etc. (6) Esophagitis: suspected based on CT imaging, but EGD showed a NORMAL esophagus (7) Hypertension: Cont HCTZ Cont atenolol Cont flomax (being used mainly for BPH) Added low-dose potassium supplementation 10meq daily due to his HCTZ usage and tendencies towards low or low-normal potassium levels Notes For Next Care Provider Medication Changes From Visit Flagyl 500mg BID x 7 days Admission HPI Per Admitting Provider Scout Contreras is a 74 year old male who presents to the ER with abdominal pain. He reports 3 weeks of constipation which he puts down to his diet change with less cherries since the summer. Abdominal pain started yesterday at 230 to 3 PM as a constant pain generalized all over his abdomen without radiation. He lay down on the couch and try going to the bathroom to pass a small amount of stool with limited success in alleviation of the pain. He took Pepto-Bismol with no alleviation. He went to his sister's house and drank a beer following this and reports it was tough to keep this down. He took a tums following this which did not help. Around 9 PM his pain instantly got a lot worse while lying down to go to bed. He felt a lot of reflux. Pain severity 7-8 out of 10. He was gagging and trying to vomit all night long. He was good for 15 to 20 minutes and then the same thing would happen. He notes the vomit looked like coffee grounds. He did not take any of his medications this morning and came to the ER due to ongoing symptoms. He denies any recent NSAID use. He takes Eliquis for atrial fibrillation which she last took last night. He reports a possible gastric ulcer 18 years old but had no EGD at that time to confirm it. He reports his last colonoscopy was in 2017 and did not show any abnormalities. Discharge Exam gen - NAD, looks well mouth - MMM neck - no JVD heart - irregularly irregular, s1 s2, no murmur lungs - CTA b/l abd - soft, scantly distended, BS+, NT, no HSM ext - pulses 2+ b/l, no edema psych - a/o x 3 Discharge Plan Discharge Items Patient Disposition: Home - Self-Care Reason For Visit: abnormal CT scan of the abdomen Discharge Diagnosis: 1. abnormal CT scan of the abdomen - likely due to gastrointestinal infection 2. Giardia infection 3. Norovirus infection 4. dark stools - no evidence of any bleeding from the upper portion of the GI tract on EGD (upper endoscopy) Activity: Resume your previous activity Activity Comment: as tolerated Non-emergency contact: Primary Care Provider Call non-emergency contact if: you have any medication questions, your symptoms worsen and you have a fever Follow-up/Referrals: Nabil Yoon [Primary Care Provider] - (PLEASE CALL YOUR PRIMARY CARE PROVIDER TO SCHEDULE A HOSPITAL DISCHARGE FOLLOW-UP APPOINTMENT WITHIN 7-10 DAYS) Yohana Ramirez Jr, MD [Physician] - (2-3 weeks ) Diet: Low Fiber Addtl Attending Provider Instructions: Mr Contreras, You were hospitalized due to having several weeks of change in bowel habits (constipation), abdominal pain, and changes in the color of your stool (dark black). You also had had nausea with vomiting. CT scan of the abdomen at time of admission showed possible irritation in your esophagus and your bowels were also abnormal appearing on the CT. [facility] saw you in consult and recommended stool studies, upper endoscopy (EGD), and supportive care. The EGD study was normal - the stomach, esophagus, and very first portion of your small intestine were normal. We did not see any recent or current bleeding. Thus, the cause of the dark/black stool was uncertain. A stool test was done to rule out infection. This returned positive for both Giardia (see handouts) as well as norovirus. I suspect that the Giardia has been the main culprit causing your abdominal symptoms over the last few weeks. It is uncertain where you contracted Giardia from. It is often transmitted via contaminated water and food, especially water from streams, lakes, springs, wells, etc. Fortunately it is very treatable. If the norovirus was causing symptoms recently please know it is a self-limiting illness that does not require treatment. Recommendations - 1. for Giardia infection - * metronidazole 500mg twice daily x 7 days, first dose TONIGHT * this medicine occasionally causes nausea * it can sometimes cause a metallic taste in your mouth * please do not drink alcohol while on metronidazole as this can lead to a harsh reaction that can make you sick 2. at home be sure to wash your hands with soap & water frequently - for at least 20 seconds. Use bleach wipes to wipe down high-touch surfaces such as doorknobs, bathroom fixtures, TV remotes, toilets, sink faucets/handles, etc. There is a small risk of contagiousness to others while you are recovering from this illness. 3. due to hydrochlorothiazide use please take a potassium supplement - 10meq once daily; I sent a prescription to the [facility] for you; take this daily. 4. the [facility] Department will likely be contacting you regarding the Giardia infection. 5. ok to resume your Eliquis as previous. 6. if you suffer from constipation at home you can take [id number] miralax one serving once daily. 7. please avoid use of Pepto-Bismol as this can turn your stools dark (making it hard to know if the black material is blood or the Pepto itself) and can make you more constipated as well. Follow-up - see [facility] within the next 2-3 weeks if possible; see your family doctor within 1 week Return to [facility] if - * you have vomiting * you have worsening abdominal pain * you are unable to eat or drink or keep food/beverages down * you see dark, black, tarry stools * you see bright red blood in your stools * you are unable to have a bowel movement (severe constipation) * any other concerns It was our pleasure to care for you! Pending Studies at Discharge: No Stand-Alone Forms: My [facility], Smoking Cessation Medications and DC Order Prescriptions: New metronidazole 500 mg Tablet 500 mg PO BID 7 Days Qty: 14 0RF potassium chloride 10 mEq tablet extended release 10 meq PO DAILY Qty: 30 2RF Continued hydrochlorothiazide 25 mg tablet 25 mg PO QAM levothyroxine 75 mcg tablet 75 mcg PO DAILYBB atenolol 25 mg tablet 25 mg PO PM atorvastatin 40 mg tablet 40 mg PO QPM acetaminophen [Tylenol Extra Strength] 500 mg Tablet 1,000 mg PO Q6H PRN (Reason: Pain) gabapentin 300 mg capsule 300 mg PO QPM Patient Comments: DOSE CAN GO HIGH 1500 MG /AVERAGE IS 600 MG PER DAY - MOSTLY TWICE A DAY Cbd Capsule 1 dose PO DAILY Patient Comments: FOR ANXIETY tramadol 50 mg tablet 50 - 100 mg PO Q6H PRN (Reason: pain) Qty: 20 0RF multivitamin Tablet 1 tab PO QAM buspirone 30 mg tablet 15 mg PO QAM magnesium 250 mg Tablet 250 mg PO QPM melatonin 5 mg Tablet 5 mg PO HS PRN (Reason: Sleep) Eliquis 5 mg tablet 5 mg PO BID tamsulosin 0.4 mg capsule 0.4 mg PO QPM Discharge Orders: Discharge Order (Routine); Ordered 07/17/24 Ordered By: Ramesh Gallegos/Other Patient Handouts: Giardiasis, Understanding Norovirus Admission Data Admit Date/Time: 07/14/24 11:27 Attending Provider: Ramesh Main Admit Provider: Ramesh Ricketts Primary Care Provider: Nabil Yoon Other Providers: Yohana Ramirez Jr Other Interventions: Discharge Summary Assessment (RN) Last Done: 07/17/24 13:30 Hospital Stay Data Consultations [facility] Procedures Performed Operation Date: 07/16/24 17:35 Actual Procedures Esophagogastroduodenoscopy - Yohana Ramirez Jr, MD * normal esophagus * normal stomach * normal duodenum Diagnostic Imagining Performed Abdomen/Pelvis CT 07/14/24 08:45 CT OF THE ABDOMEN AND PELVIS WITH CONTRAST CLINICAL HISTORY: Acute epigastric pain, coffee ground emesis. COMPARISON STUDY: Abdominal aortic ultrasound April 29, 2019. Prostate MRI December 13, 2022. TECHNIQUE: Following IV administration of 94 mL of Optiray, axial images of the abdomen and pelvis were obtained from the lung bases to the proximal femurs. Images were reviewed in the axial, sagittal, and coronal planes. IV contrast was administered without complication. Automated exposure control was utilized for the study. A dose lowering technique was utilized adhering to the principles of ALARA. CT DOSE: 1063.15 mGy.cm FINDINGS: Lung bases are unremarkable. There is mild circumferential wall thickening of the distal esophagus. No pneumatosis, free air or portal venous gas is present. The stomach is mildly distended and fluid-filled. Multiple small bowel loops are also mildly dilated and fluid-filled. There is increased stool within the small bowel. A well-defined transition point is not identified. There is minimal mesenteric stranding. The liver, spleen, adrenal glands and pancreas are unremarkable. There is no biliary or pancreatic ductal dilatation. There is extensive atherosclerotic plaque within the abdominal aorta. Attenuation bilateral renal lesions represent cysts. There is no hydronephrosis. There is no lymphadenopathy. There are no fluid collections. The prostate is enlarged, measuring 5.7 cm in transverse diameter. There are small fat-containing bilateral inguinal hernias. IMPRESSION: 1. Mild circumferential wall thickening of the distal esophagus. This favors esophagitis. 2. Fluid-filled mildly distended stomach. Multiple distended fluid-filled small bowel loops. The findings may reflect a gastroenteritis. Although no well- defined transition point, a partial small bowel obstruction could appear similar. Radiographic follow-up is recommended. 3. Multiple renal cysts. 4. Enlarged prostate. No hydronephrosis. ACT 112: Negative or not required by law. Electronically signed by: Aubrey Randall M.D. 07/14/2024 11:04 AM KUB X-Ray 07/16/24 18:10 KUB CLINICAL HISTORY: Generalized abdominal pain. Small bowel obstruction. FINDINGS: 2 AP, portable, supine abdominal radiographs are correlated with abdominal CT dated 07/14/2024. There is persistent gaseous distention of the small bowel loops which measure up to 3.3 cm in diameter. This indicates persistent obstruction. There are foci of gas noted throughout the colon. No evidence of intraperitoneal free air is seen on these supine images. There are no abnormal abdominal calcifications. Phleboliths are noted in the pelvis. The skeletal structures are osteopenic and appear intact. There is advanced lumbosacral spondylosis as well as scoliosis. The lung bases are clear as imaged. IMPRESSION: Persistent small bowel obstruction. Electronically signed by: Fabrizio Magana M.D. 07/17/2024 7:13 AM Pending Results Patient Have Any Pending Studies at Discharge: No Discharge Instructions Given to Patient (Per Discharging Provider) Mr Contreras, Krishna were hospitalized due to having several weeks of change in bowel habits (constipation), abdominal pain, and changes in the color of your stool (dark black). You also had had nausea with vomiting. CT scan of the abdomen at time of admission showed possible irritation in your esophagus and your bowels were also abnormal appearing on the CT. [facility] saw you in consult and recommended stool studies, upper endoscopy (EGD), and supportive care. The EGD study was normal - the stomach, esophagus, and very first portion of your small intestine were normal. We did not see any recent or current bleeding. Thus, the cause of the dark/black stool was uncertain. A stool test was done to rule out infection. This returned positive for both Giardia (see handouts) as well as norovirus. I suspect that the Giardia has been the main culprit causing your abdominal symptoms over the last few weeks. It is uncertain where you contracted Giardia from. It is often transmitted via contaminated water and food, especially water from streams, lakes, springs, wells, etc. Fortunately it is very treatable. If the norovirus was causing symptoms recently please know it is a self-limiting illness that does not require treatment. Recommendations - 1. for Giardia infection - * metronidazole 500mg twice daily x 7 days, first dose TONIGHT * this medicine occasionally causes nausea * it can sometimes cause a metallic taste in your mouth * please do not drink alcohol while on metronidazole as this can lead to a harsh reaction that can make you sick 2. at home be sure to wash your hands with soap & water frequently - for at least 20 seconds. Use bleach wipes to wipe down high-touch surfaces such as doorknobs, bathroom fixtures, TV remotes, toilets, sink faucets/handles, etc. There is a small risk of contagiousness to others while you are recovering from this illness. 3. due to hydrochlorothiazide use please take a potassium supplement - 10meq once daily; I sent a prescription to the [facility] for you; take this daily. 4. the [facility] Department will likely be contacting you regarding the Giardia infection. 5. ok to resume your Eliquis as previous. 6. if you suffer from constipation at home you can take [id number] miralax one serving once daily. 7. please avoid use of Pepto-Bismol as this can turn your stools dark (making it hard to know if the black material is blood or the Pepto itself) and can make you more constipated as well. Follow-up - see [facility] within the next 2-3 weeks if possible; see your family doctor within 1 week Return to [facility] if - * you have vomiting * you have worsening abdominal pain * you are unable to eat or drink or keep food/beverages down * you see dark, black, tarry stools * you see bright red blood in your stools * you are unable to have a bowel movement (severe constipation) * any other concerns It was our pleasure to care for you! Total Time Total Time Spent Total Time Spent (In Minutes): 45 Coding Level of Care Code 01211 INP/OBS DISCH >30 MIN Diagnoses Giardia A07.1 Norovirus A08.11 Partial bowel obstruction K56.600 Atrial fibrillation I48.91 Constipation K59.00 Esophagitis K20.90 Hypertension I10
--- NOTE | 2024-07-18 22:10 | Electrocardiogram Report ---
Test Reason : Blood Pressure : */* mmHG Vent. Rate : 93 BPM Atrial Rate : * BPM P-R Int : * ms QRS Dur : 80 ms QT Int : 384 ms P-R-T Axes : * 6 -28 degrees QTcB Int : 477 ms Atrial fibrillation T wave abnormality, consider inferior ischemia Abnormal ECG When compared with ECG of 20-Dec-2022 15:03, T wave inversion now evident in Inferior leads Confirmed by Prakash Ku ([id number]) on 07/18/2024 10:09:47 PM Referred By: REFERRED SELF Confirmed By: Prakash Ku
== END 2024-07-17 17:01 | disposition home or self-care (01) | DRG 373 ==
LOC: ED 08:27 → SUATTDRO 11:27 → 2N 11:27 → EDINP 11:27 → 2N 15:51